=== PATIENT | female | born 1945 | race Caucasian/White ===

== ENCOUNTER → 2017-06-05 10:49 | Outpatient (CLI) | payer MEDICARE, SELFPAY ==
--- NOTE | 2017-06-05 10:54 | HPBI_ITS ---
MAMMOGRAPHY - BILATERAL SCREENING REASON FOR EXAM: Female, 71 years old. Routine annual screening examination. PERTINENT HISTORY: Non-contributory. TECHNIQUE: Digital bilateral breast justina (3D mammographic acquisition) in the CC and MLO projections. 2-D mediolateral oblique (MLO) and craniocaudad (CC) views of both breasts were obtained. CAD: Full Field Digital Mammography with Computer Added Detection was performed. COMPARISON: Comparison is made with prior outside examination dated February 26, 2016. FINDINGS: Breast Composition: There are scattered areas of fibroglandular density. There are no dominant masses or suspicious calcifications. There are stable bilateral benign-appearing axillary lymph nodes. No other significant abnormalities are identified. There has been no significant change since the prior study. HPBI/SCREENING MAMM (CAD), BILAT IMPRESSION: Stable bilateral screening mammogram. Yearly follow-up mammogram recommended. (A) ASSESSMENT CATEGORY: BIRADS Category 2: Benign. A letter regarding these results will be sent to the patient by the facility within 30 days. Approximately 10% of breast cancers are not detected by mammography. A normal mammogram should not delay biopsy of a clinically suspicious abnormality. [id number] Electronically Signed: Benny Mendieta MD at 13:01 EST Tel [phone], Service support ,
== END ==
PROVIDERS: Family Provider Nurse Practitioner; PCP Nurse Practitioner; Visit Provider Nurse Practitioner
DX: Z12.31 Encounter for screening mammogram for malignant neoplasm of breast (principal)
CPT/HCPCS: 77063; 77067

== ENCOUNTER → 2018-04-03 10:50 | Outpatient (CLI) | payer MEDICARE, SELFPAY ==
[2018-03-28 10:32] VITALS: BMI 39.6
--- NOTE | 2018-04-04 11:15 | PFT ---
INTRODUCTION: The patient is a 72-year-old female that presents for pulmonary function testing secondary to a diagnosis of shortness of breath. Respiratory therapy reports good patient effort. Bronchodilators were used during testing. INTERPRETATION: Forced expiration spirometry demonstrates the presence of a severe large airways obstructive ventilatory defect. There was a significant response to aerosolized bronchodilators noted. Spirograms are of good quality and do not plateau indicating slow emptying of the lungs. Body plethysmography was performed and reveals an elevated RV to 156% of predicted, indicative of underlying air trapping. Diffusing capacity by single breath CO is reduced at 43% of predicted. IMPRESSION: These pulmonary function studies demonstrate the presence of a partially reversible severe large airways obstructive ventilatory defect with associated air trapping and reduction in diffusing capacity.
== END ==
PROVIDERS: Family Provider Nurse Practitioner; PCP Nurse Practitioner; Referring Provider Internal Medicine Critical Care Medicine; Visit Provider Internal Medicine Critical Care Medicine
DX: R06.02 Shortness of breath (principal)
CPT/HCPCS: 94060; 94726; 94729

== ENCOUNTER → 2018-04-05 11:55 | Outpatient (CLI) | payer MEDICARE, SELFPAY ==
[2018-03-28 10:32] VITALS: BMI 39.6
--- NOTE | 2018-04-05 11:58 | RAD_ITS ---
STUDY: X-RAY - LUMBAR SPINE REASON FOR EXAM: Female, 72 years old. Lower back pain. TECHNIQUE: 3 view(s) of the lumbar spine were obtained. COMPARISON: June 13, 2014. MRI of the lumbar spine, July 23, 2014. FINDINGS: Normal lumbar lordosis. There is a dextroscoliosis of the thoracolumbar spine. There is a normal alignment of the vertebrae. There is multilevel endplate spondylosis of the lumbar vertebrae. There is multi-level degenerative disc disease with multi-level disc space narrowing. There is no evidence of acute fracture or loss of vertebral axial height. There is atherosclerotic calcification of the abdominal aorta a lower abdominal aneurysm measuring 4.9 cm in AP dimension. RAD/Lumbar Spine 2 or 3 Views IMPRESSION: 1. Scoliosis and degenerative changes of the lumbar spine. 2. Stable abdominal aortic aneurysm. Electronically Signed: Rk Miranda DO at 23:19 EST Tel [phone], Service support ,
== END ==
PROVIDERS: Family Provider Nurse Practitioner; PCP Nurse Practitioner; Referring Provider Anesthesiology Pain Medicine; Visit Provider Anesthesiology Pain Medicine
DX: M54.9 Dorsalgia, unspecified (principal)
CPT/HCPCS: 72100

== ENCOUNTER → 2018-04-16 10:44 | Outpatient (CLI) | payer MEDICARE, SELFPAY ==
[2018-03-28 10:32] VITALS: BMI 39.6
[2018-04-16 11:28] VITALS: PULSE 59; PULSE 60; PULSE 83; PULSE 87; PULSE 88; PULSE 89; PULSE 93; PULSE 96; O2SAT 87; O2SAT 90; O2SAT 93; O2SAT 94; O2SAT 95; O2SAT 96; O2SAT 97
--- NOTE | 2018-04-16 11:39 | CPS ---
Pt's SpO2 dropped to 87% by the 3rd minute. Placed patient on 2 lpm O2, SpO2 97%. Patient walked an additional 3 minutes on 2 lpm O2, SpO2 >89%. Explained to patient about having oxygen at home when ambulating, patient states she would like to wait and discuss with Lisa AUTO BENCH MECHANIC at her appointment this month. Told patient that Lisa would be willing to come down now to talk to her but patient refused.
--- NOTE | 2018-04-18 15:14 | WT_ITS ---
PSN 6 Minute Walk Test - 6 Minute Walk Test 6 Minute Walk Test: 6 Minute Walk Test PSN:6-Minute Walk Test Start: 04/16/18 11:28 Freq: Status: Active Protocol: [id number].6MINW Document 04/16/18 11:28 GEN (Rec: 04/16/18 11:50 GEN [id number]) 6 Minute Walk Test Date Performed 04/16/18 Time Performed 11:00 Height 5 ft 5 in Weight: 195 lb Weight in Pounds 195.[address]: Alessandro Zepeda Assistive device used: None Pre-test Oxygen Delivery Method Room Air Pulse Ox (%) 94 Pulse Rate (60-100 beats/min) 59 L Dyspnea Myrtle Scale (0-10) 0 Exertion Myrtle Scale (6-20) 6 1st minute Oxygen Delivery Method Room Air Pulse Ox (%) 93 Pulse Rate (60-100 beats/min) 83 2nd minute Oxygen Delivery Method Room Air Pulse Ox (%) 90 Pulse Rate (60-100 beats/min) 93 3rd minute Oxygen Delivery Method Room Air Pulse Ox (%) 87 Pulse Rate (60-100 beats/min) 96 Dyspnea Myrtle Scale (0-10) 3 4th minute Oxygen Flow Rate (L/min) (L/min) 2 Oxygen Delivery Method Nasal Cannula Pulse Ox (%) 96 Pulse Rate (60-100 beats/min) 87 5th minute Oxygen Flow Rate (L/min) (L/min) 2 Oxygen Delivery Method Nasal Cannula Pulse Ox (%) 95 Pulse Rate (60-100 beats/min) 88 6th minute Oxygen Flow Rate (L/min) (L/min) 2 Oxygen Delivery Method Nasal Cannula Pulse Ox (%) 93 Pulse Rate (60-100 beats/min) 89 Dyspnea Myrtle Scale (0-10) 2 Exertion Myrtle Scale (6-20) 12 Post-test Oxygen Flow Rate (L/min) (L/min) 2 Oxygen Delivery Method Nasal Cannula Pulse Ox (%) 97 Pulse Rate (60-100 beats/min) 60 Full Laps Walked 18 Partial Lap, Number of Tiles Walked 12 Total Distance Walked (ft) 1074 04/16/18 11:39 Cardiopulmonary Services by Noelle Caicedo Pt's SpO2 dropped to 87% by the 3rd minute. Placed patient on 2 lpm O2, SpO2 97%. Patient walked an additional 3 minutes on 2 lpm O2, SpO2 >89%. Explained to patient about having oxygen at home when ambulating, patient states she would like to wait and discuss with Lisa TRIP MOTOR OPERATOR at her appointment this month. Told patient that Lisa would be willing to come down now to talk to her but patient refused. Initialized on 04/16/18 11:39 - END OF NOTE - Interpretation Interpretation: The patient ambulated 1074 feet over the course of 6 minutes beginning on room air without assistive devices or breaks. Pretesting oxygen saturation was noted to be 94% on room air. With ambulation, the nyla oxygen saturation was 87% at minute 3 of testing. 2 L/min of supplemental oxygen was applied and the patient was able to complete the remainder of the test while maintaining appropriate oxygen saturations. This testing indicates the presence of significant exertional oxygen desaturation. - Recommendations Recommendations: 2 L/min of supplemental oxygen should be utilized with exertion.
--- OUTSIDE RECORDS SUMMARY | 2018-07-18 23:50 | XMS RPT_ITS ---
:1945 Author Organization OHIP Support Name Relationship Address Phone HENRI HENNA Unavailable [address] + [place] [address] R Unavailable Unavailable Unavailable Sheipline, Heather Unavailable . + [place] [address] SULEMA SINGLETONISE Unavailable [address] + [place] [address] R Unavailable Unavailable Unavailable Sheipline, Heather Unavailable . + [place] [address] SULEMA SINGLETONISE Unavailable [address] + [place] [address] R Unavailable Unavailable Unavailable Sheipline, Heather Unavailable Unavailable + [place] [address] HENRI, HENNA Unavailable [address] + [place] [address] R Unavailable Unavailable Unavailable SHEIPLINE, CINTHYA Unavailable [address] + [place] [address] HENRI, HENNA Unavailable [address] + [place] [address] R Unavailable Unavailable Unavailable Sheipline, Heather Unavailable . + [place] [address] HENRI, HENNA Unavailable [address] + [place] [address] R Unavailable Unavailable Unavailable SHEIPLINE, CINTHYA Unavailable [address] + [place] [address] HENRI, HENNA Unavailable [address] + [place] [address] R Unavailable Unavailable Unavailable SHEIPLINE, CINTHYA Unavailable [address] + [place] [address] Henri, Henna Unavailable Unavailable + MCCANNA, HENNA Unavailable [address] + [place] [address] R Unavailable Unavailable Unavailable CINTHYA BARRAGAN Unavailable [address] [phone] [place] [address] Care Team Providers Name Role Phone Darlyn Chawla Attending Unavailable Rowena Hernandez Referring Unavailable Mary Rowena Primary Care Unavailable Alessandro Zepeda D.O. Attending Unavailable Alessandro Zepeda D.O. Referring Unavailable Lisa Ashley Attending Unavailable Rina Valle Referring Unavailable Romy Blood.O. Attending Unavailable Romy Blood.O. Referring Unavailable Rina Valle Attending Unavailable Rina Valle Primary Care Unavailable Romy Blood.Costa. Attending Unavailable Rina Valle Referring Unavailable Alessandro Zepeda D.O. Attending Unavailable Romy Blood.O. Referring Unavailable Rina Valle Primary Care Unavailable Romy Blood.Costa. Attending Unavailable Romy Blood.Marlyn Referring Unavailable Rina Valle Primary Care Unavailable Migue Inman Attending Unavailable Migue Inman Referring Unavailable Shirleneapoorva [facility] Unavailable PROBLEMS PROBLEMS DATE TYPE CONDITION / CODE ATTENDING STATUS SOURCE 04/25/2018 Unknown J44.9 - Chronic Ashley, Active [facility] obstructive [facility] pulmonary disease, Hospital unspecified / Repository J44.9(ICD-10) 04/25/2018 Unknown J45.909 - Ashley, Active [facility] Unspecified asthma, [facility] uncomplicated / Hospital J45.909(ICD-10) Repository 04/25/2018 Unknown Z23 - Encounter for Ashley, Active [facility]ianna immunization / [facility] Z23(ICD-10) Hospital Repository 05/03/2018 Unknown R06.02 - Shortness Alessandro Zepeda Active [facility] of breath / [facility] R06.02(ICD-10) Hospital Repository 11/09/2017 Admitting Occlusion and Derek, [facility] Diagnosis stenosis of [facility] bilateral carotid Repository arteries / I65.23(ICD-10) 11/09/2017 Admitting Stricture of artery Derek, [facility] Diagnosis / I77.1(ICD-10) [facility] Repository 06/05/2017 Unknown Z12.31 - Encounter Rina Valle Active [facility] for screening Community mammogram for Hospital malignant neoplasm Repository of breast / Z12.31(ICD-10) PROCEDURES PROCEDURES No Procedure Records FoundRESULTS RESULTS PULMONARY VISIT REPORT Observed: 04/25/2018 Status: F Source: [place] 3:19 PM [facility] RE[facility]IT[facility] [address] [place] [address] OFFICE VISIT Date of Service: 04/25/18 MR#: [id number] Acct: [id number] Name: DIOGO BARRAGAN Rep #: [id number] : 1945 Provider: Lisa Ashley Age/Sex: 72/F Location: [facility].PMW Status: Signed with Addenda ADDENDUM by Lisa Ashley on 04/25/18 at 1519 OFFICE PROCEDURES Office Procedure Documentation entered by BOO Sullivan 04/25/18 15:19: Inhaler Training Inhaler Training Procedure performed by: Lisa Ashley Inhaler Training: Yes personally trained on inhaler use, sample provided, first dose given in the office, expresses understanding and continue to monitor Immunizations Prevnar 13 (PF) Performing Provider: BOO Sullivan Administered by: Sandra Dos Santos on 04/25/18 13:55 Dose Route Admin Location Lot Number Expiration Date [facility] Supply Coordinator 0.5 mL IM Left Deltoid [id number] 11/29/18 [id number] [employer] VIS Given Date VIS Publication Date 04/25/18 12/05/14 Eligibility Eligibility Date 04/25/18 3306 <Electronically signed by Lisa HADDAD> Date Lisa Ashley cc: Rina Valle NP * Signed Assessment AND Plan 1. Stage 3 severe COPD by GOLD classification J44.9 Plan New. Given results of recent PFTs we have been able to quantify patient's COPD as severe. Discussed the test results with the patient. Keeping her on the Symbicort, however given her air trapping will add Spiriva. She was personally instructed on how to use the new inhaler. Follow-up with Dr. Zepeda in 2 months, at which time we can evaluate how she has responded to this new medication. Contact the office with any new or worsening symptoms in the meantime. Annual influenza vaccine current, Prevnar 13 provided in the office today. Orders Orders: 2. Acute respiratory failure with hypoxia J96.01 Plan New. Patient was recently identified as becoming hypoxic with ambulation and needs to be set up with supple oxygen. She should use 2 L/min continuous with ambulation but does not require supplemental oxygen at rest. We will follow-up with Dr. Zepeda in 2 months, at which time we can reevaluate her need for supple oxygen. She has been encouraged to obtain a portable pulse oximeter to check her saturations at home and maintain a saturation of 89-92%. 3. Asthma J45.909 Orders Orders: 4. Obesity (BMI 30.0-34.9) E66.9 Plan Detail Other Orders Orders: Other Medications New: tiotropium bromide 2.5 mcg/actuation (Spiriva Respimat) 2 puffs Inhalation QDAY 1 ea 1RF administer at approximately the same time(s) each day Discontinued: Prevnar 13 (PF) (pneumoc 13-eliel conj-dip cr(PF)) Disco0.5 mL IM ONCE 0.5 mL 0RF NS Z23 ntinued Reason: Office Medication has been Documented as given Follow Up 2 Months (DMB) HPI 1 M FU: Chief Complaint: Shortness of breath on exertion HPI Comments Details: This is a 72 year old F, currently under the care of Rina Valle NP, here today to review test results. He has not been seen in the ED or urgent care for respiratory illnesses since her last office visit. Has not required any antibiotics or prednisone for any breathing problems. She is compliant with Symbicort 2 puffs twice daily. She reports taking a drink after each use. She denies any medication side effects such as sore throat or thrush. She has not admitted to any albuterol use. She states that she uses her rescue inhaler rarely. She continues to experience shortness of breath on exertion only, denies any shortness of breath with rest or with conversation. It has not worsened since her last office visit. She does report occasional chest tightness, relieved by the use of her albuterol HFA. She has clear nasal drainage but denies any cough. She denies any sputum production. She denies any wheezing or chest pain, or palpitations. She denies any fever, chills or body aches. See complete review of systems. I personally reviewed the tests/images/tracings which showed: Complete Pulmonary Function test were preformed on April 03, 2018, and showed FVC of 83 % of predicted, FEV1 of 58 % of predicted, FEV1/FVC ratio of 53 %, TLC of 110 % of predicted, RV of 156 % of predicted, DLCO 43% of predicted. The test was interpreted to be consistent with severe large airway obstructive ventilatory defect, with a significant response to bronchodilators and a reduction in diffusing capacity. Air trapping was noted. Consistent with asthma/COPD overlap syndrome. Pulmonary stress test was completed on April 16, 2018, and showed a drop in saturation below 89% at minute 3, which suggested a requirement of 2 LPM of supplemental oxygen on ambulation. She was able to ambulate a total of 1074 feet over the course of 6 minutes. 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 [Ecotrin] 81 mg PO DAILY@0800 03/23/16 [History Confirmed 04/25/18] Budesonide/Formoterol 160/4.5 [Symbicort 160/4.5 Mcg Inhaler (SP)] 2 puff INHALATION BID 03/23/16 [History Confirmed 04/25/18] Naproxen Sodium [Aleve] 880 mg PO 03/23/16 [History Confirmed 04/25/18] ascorbic acid (vitamin C) 1,000 mg tablet 1,000 mg PO QDAY tab 03/26/18 [History Confirmed 04/25/18] calcium carbonate 550 mg-magnesium hydroxide 110 mg chewable tablet 1 tab PO Q6H PRN tab 03/26/18 [History Confirmed 04/25/18] calcium carbonate 600 mg calcium (1,500 mg) tablet 1,200 mg PO BID tab 03/26/18 [History Confirmed 04/25/18] cholecalciferol (vitamin D3) 50,000 unit capsule 50,000 unit PO QWEEK 03/26/18 [History Confirmed 04/25/18] diphenhydramine 25 mg-acetaminophen 500 mg tablet 1 tab PO QHS PRN 03/26/18 [History Confirmed 04/25/18] glucosamine 750 oz-dkxyavigf-ftl no.7 644 mg-vit S-bktdup-llfoy tablet 1 tab PO QDAY tab 03/26/18 [History Confirmed 04/25/18] rosuvastatin 10 mg tablet 10 mg PO DAILY 03/26/18 [History Confirmed 04/25/18] tiotropium bromide 2.5 mcg/actuation mist for inhalation 2 puff INHALATION QDAY #1 ea 04/25/18 [Rx Confirmed 04/25/18] [facility] Medical History Abdominal aortic aneurysm (Acute) Shoulder pain (Acute) Tinnitus, right (Acute) Urinary frequency (Acute) Urinary incontinence (Acute) Abnormal ankle brachial index (MARIAMA) (Chronic) Anemia (Chronic) Arterial occlusive disease (Chronic) Bilateral carotid bruits (Chronic) COPD (chronic obstructive pulmonary disease) (Chronic) Carotid artery stenosis, unilateral (Chronic) LITTLEJOHN (dyspnea on exertion) (Chronic) Former smoker (Chronic) Hypercholesterolemia (Chronic) Osteopenia (Chronic) Sciatica (Chronic) Surgical History H/O dilation and curettage (Resolved) H/O foot surgery (Resolved) H/O hemorrhoidectomy (Resolved) H/O tubal ligation (Resolved) History of appendectomy (Resolved) Family History Mother Hypertension Social History Smoking Status: Former smoker how long ago did patient quit smokin, 1ppd second hand exposure: Yes Review of Systems Const CONSTITUTIONAL: Positive fatigue; negative anorexia, body ache, chills, daytime sleepiness, fever(s), night sweats, oral thrush, stops breathing during sleep, weight loss, sleeping in chair, weight loss, weight gain, frequent colds, seasonal allergies, other, headache(s) or orthopnea EETM Ear Nose Throat Mouth: Positive hearing normal, nasal discharge (clear) and post nasal drip; negative hard of hearing, hoarseness, dry mouth in morning, change in vision, itchy eyes, eye pain, swallowing Difficulty, ear pain, nose bleed, headache(s), mouth pain, nasal congestion, sinus pain, sinus pressure, sore throat or other Cardio Cardiovascular: Negative chest pain, chest pain at rest, chest pain with activity, irregular heart rhythm, edema, shortness of breath when lying down, palpitations, murmur or other Resp Respiratory: Positive as per HPI, shortness of breath shortness of breath: Positive with activity, chest tightness and inhalers; negative pain with cough, wheezing, chest congestion, cough, pain on inspiration, increase use of rescue inhalers, snoring, apnea or other Gastro Gastrointestional: Negative bloody stools, change in appetite, difficulty swallowing, reflux, hematemesis, melena stool, loose stool, constipation or other Genitourinary: Negative blood in urine, nocturia, pain with urination or other Musc Musculoskeletal: Negative body pain, back pain, neck pain or other Skin/Breast Skin/Breast: Negative dry skin, itching, rash, unusual bruising, breast lump or other Neuro Neurological: Negative restless legs, confusion, weakness or other Psych Psychocological: Negative abnormal sleep pattern, anxiety, thoughts of hurting self/others, hopelessness or other Lymph Lymphatic: Negative easy bleeding, easy bruising, swollen lymph nodes or other Exam Const Constitutional: Positive conversant, cooperative, in no acute respiratory distress, healthy appearing, well developed, well nourished and good hygiene Head Head: Positive normocephalic and atraumatic; negative cyanosis of lips/distal nose Eyes Eye: Positive clear conjunctiva; negative nystagmus or scleral abnormality Ears Ear: Positive hearing normal and external ears normal; negative hard of hearing Nose Nose: Positive external nose normal and no nasal discharge; negative epistaxis Mouth Mouth: Positive post nasal drip, oral mucosae normal, no lesions, dentures and crowded posterior oropharynx; negative malodorous breath or oral thrush present Mallampati Score: III: Mallampati Score Neck Neck: Positive normal visual inspection, full ROM, trachea midline and thick neck; negative lymphadenopathy, JVD or tender Chest Wall Chest: Positive symmetric chest movement and increased A/P diameter Resp lung sounds: Positive clear to auscultation, diminished and prolonged expiratory time; negative wheezes, rhonchi, rales, dullness to percussion or wheeze present on forced exhalation Cardio Cardiac: Positive regular rate, regular rhythm, S1 normal and S2 normal; negative murmur GI GI: Positive normal to inspection; negative distended Genitourinary: Positive deferred Musc Musculoskeletal: Positive steady gait, ROM normal and kyphosis; negative scoliosis Skin Pulmonary Skin Exam: Positive intact; negative rash Pulses Pulse: Yes pulses normal x4 extremities Extremities Extremities: Yes capillary refill normal, No clubbing, No cyanosis, No edema Neuro Neurologic: Yes conversant, Yes no focal neuro deficits, Yes normal concentration, Yes understands questions, Yes cooperative, Yes normal cognition, Yes normal coordination, No tremor Lymph Lymphatic: No lymphadenopathy, No tenderness, No cervical adenopathy Psych Appearance: Positive grossly normal, eye contact and well kempt Mental Status: Positive mental status grossly normal Mood: Positive congruent mood Affect: Positive normal affect Immunizations Prevnar 13 (PF) Performing Provider: BOO Sullivan Administered by: Sandra Dos Santos on 04/25/18 13:55 Dose Route Admin Location Lot Number Expiration Date [employer] Supply Coordinator 0.5 mL IM Left Deltoid [id number] 11/29/18 [employer] VIS Given Date VIS Publication Date 04/25/18 12/05/14 Eligibility Eligibility Date Coding Level of Care Code Off vis,est,level 4 Diagnoses Stage 3 severe COPD by GOLD classification J44.9 Acute respiratory failure with hypoxia J96.01 Chronicity: acute Asthma J45.909 Obesity (BMI 30.0-34.9) E66.9 04/25/18 1509 <Electronically signed by Lisa HADDAD> Date Lisa HADDAD Cosigner Signature: Date (if applicable) CC: Rina Valle CLIENT PROGRAM MANAGER 6 MINUTE WALK TEST Observed: 04/18/2018 Status: F Source: [place] 3:14 PM [facility] [address] [place] [address] MR#: [id number] Acct: [id number] Name: DIOGO BARRAGAN Rep #: [id number] : 1945 72 From: Alessandro Zepeda DO Referring Dr: Alessandro Zepeda D.O. Date: Ordering Dr: Sex: F C Location: PSN PSN 6 Minute Walk Test - 6 Minute Walk Test 6 Minute Walk Test: 6 Minute Walk Test PSN:6-Minute Walk Test Start: 04/16/18 11:28 Freq: Status: Active Protocol: RESP.6MINW Document 04/16/18 11:28 [place] (Rec: 04/16/18 11:50 SF[place] [id number]) 6 Minute Walk Test Date Performed 04/16/18 Time Performed 11:00 Height 5 ft 5 in Weight: 195 lb Weight in Pounds 195.[address]: Alessandro Zepeda Assistive device used: None Pre-test Oxygen Delivery Method Room Air Pulse Ox (%) 94 Pulse Rate (60-100 beats/min) 59 L Dyspnea Myrtle Scale (0-10) 0 Exertion Myrtle Scale (6-20) 6 1st minute Oxygen Delivery Method Room Air Pulse Ox (%) 93 Pulse Rate (60-100 beats/min) 83 2nd minute Oxygen Delivery Method Room Air Pulse Ox (%) 90 Pulse Rate (60-100 beats/min) 93 3rd minute Oxygen Delivery Method Room Air Pulse Ox (%) 87 Pulse Rate (60-100 beats/min) 96 Dyspnea Myrtle Scale (0-10) 3 4th minute Oxygen Flow Rate (L/min) (L/min) 2 Oxygen Delivery Method Nasal Cannula Pulse Ox (%) 96 Pulse Rate (60-100 beats/min) 87 5th minute Oxygen Flow Rate (L/min) (L/min) 2 Oxygen Delivery Method Nasal Cannula Pulse Ox (%) 95 Pulse Rate (60-100 beats/min) 88 6th minute Oxygen Flow Rate (L/min) (L/min) 2 Oxygen Delivery Method Nasal Cannula Pulse Ox (%) 93 Pulse Rate (60-100 beats/min) 89 Dyspnea Myrtle Scale (0-10) 2 Exertion Myrtle Scale (6-20) 12 Post-test Oxygen Flow Rate (L/min) (L/min) 2 Oxygen Delivery Method Nasal Cannula Pulse Ox (%) 97 Pulse Rate (60-100 beats/min) 60 Full Laps Walked 18 Partial Lap, Number of Tiles Walked 12 Total Distance Walked (ft) 1074 04/16/18 11:39 Cardiopulmonary Services by Noelle Caicedo Pt's SpO2 dropped to 87% by the 3rd minute. Placed patient on 2 lpm O2, SpO2 97%. Patient walked an additional 3 minutes on 2 lpm O2, SpO2 >89%. Explained to patient about having oxygen at home when ambulating, patient states she would like to wait and discuss with Lisa CLIENT PROGRAM MANAGER at her appointment this month. Told patient that Lisa would be willing to come down now to talk to her but patient refused. Initialized on 04/16/18 11:39 - END OF NOTE - Interpretation Interpretation: The patient ambulated 1074 feet over the course of 6 minutes beginning on room air without assistive devices or breaks. Pretesting oxygen saturation was noted to be 94% on room air. With ambulation, the nyla oxygen saturation was 87% at minute 3 of testing. 2 L/min of supplemental oxygen was applied and the patient was able to complete the remainder of the test while maintaining appropriate oxygen saturations. This testing indicates the presence of significant exertional oxygen desaturation. - Recommendations Recommendations: 2 L/min of supplemental oxygen should be utilized with exertion. 04/18/181513 <Electronically signed by Alessandro Zepeda DO> Date Alessandro Zepeda DO CC: Date Dictated: 04/18/181511 Date Transcribed: 04/18/181511 Offset Printing Pressmen: Alessandro Zepeda DO Signed LUMBAR SPINE 2 OR 3 Observed: 04/05/2018 Status: F Source: [place] [facility] 11:58 AM [facility] Services [address] [place] [address] Lumbar Spine 2 or 3 Views MR#: [id number] Acct: [id number] Name: DIOGO BARRAGAN Rep #: [id number] : 1945 F 72 From: Rk Miranda DO PCP: Rina Valle NP Status: REG CLI Study: Lumbar Spine 2 or 3 Views Date of Exam: 04/05/18 Exam# [id number] Ordering Dr: Migue Inman MD STUDY: X-RAY - LUMBAR SPINE REASON FOR EXAM: Female, 72 years old. Lower back pain. TECHNIQUE: 3 view(s) of the lumbar spine were obtained. COMPARISON: June 13, 2014. MRI of the lumbar spine, July 23, 2014. FINDINGS: Normal lumbar lordosis. There is a dextroscoliosis of the thoracolumbar spine. There is a normal alignment of the vertebrae. There is multilevel endplate spondylosis of the lumbar vertebrae. There is multi-level degenerative disc disease with multi-level disc space narrowing. There is no evidence of acute fracture or loss of vertebral axial height. There is atherosclerotic calcification of the abdominal aorta a lower abdominal aneurysm measuring 4.9 cm in AP dimension. RAD/Lumbar Spine 2 or 3 Views IMPRESSION: 1. Scoliosis and degenerative changes of the lumbar spine. 2. Stable abdominal aortic aneurysm. Electronically Signed: Rk Miranda DO at 23:19 EST Tel [phone], Service support , CC: Rina Valle NP; Migue Inman MD [employer] Pressmen: Signed PULMONARY FUNCTION Observed: 04/04/2018 Status: F Source: [place] TEST 11:17 AM [facility] Services/Neurology [address] [place] [address] MR#: [id number] Acct: [id number] Name: DIOGO BARRAGAN Rep #: [id number] : 1945 72 From: Alessandro Zepeda DO Referring Dr: Alessandro Brown, D.O. Status: REG CLI Ordering Dr: Date: Location: [facility] Sex: F C INTRODUCTION: The patient is a 72-year-old female that presents for pulmonary function testing secondary to a diagnosis of shortness of breath. Respiratory therapy reports good patient effort. Bronchodilators were used during testing. INTERPRETATION: Forced expiration spirometry demonstrates the presence of a severe large airways obstructive ventilatory defect. There was a significant response to aerosolized bronchodilators noted. Spirograms are of good quality and do not plateau indicating slow emptying of the lungs. Body plethysmography was performed and reveals an elevated RV to 156% of predicted, indicative of underlying air trapping. Diffusing capacity by single breath CO is reduced at 43% of predicted. IMPRESSION: These pulmonary function studies demonstrate the presence of a partially reversible severe large airways obstructive ventilatory defect with associated air trapping and reduction in diffusing capacity. 04/04/181116 <Electronically signed by Alessandro Zepeda DO> Date Alessandro Zepeda DO CC: Rina Valle CLIENT PROGRAM MANAGER; Alessandro Zepeda D.O. Date Dictated: 04/04/181114 Date Transcribed: 04/04/181114 Offset Printing Pressmen: KELSI Signed PULMONARY VISIT REPORT Observed: 03/28/2018 Status: F Source: [place] 12:12 PM [facility] Pul[facility] Medicine [address] [place] [address] OFFICE VISIT Date of Service: 03/28/18 MR#: [id number] Acct: [id number] Name: DIOGO BARRAGAN Rep #: [id number] : 1945 Provider: Alessandro Zepeda D.O. Age/Sex: 72/F Location: [facility].PMW Status: Signed Assessment AND Plan 1. Shortness of breath R06.02 Plan While the patient presents with an established diagnosis of COPD, based upon in office spirometry testing completed in 2013, the validity of those tests are questionable at best. In addition, the patient does not appreciate any significant symptom improvement on Symbicort. Therefore, I would recommend that the patient proceed with obtaining dedicated PFTs along with a 6-minute walk test to assess for any exertional hypoxia. Given the patient's significant weight gain following cessation of tobacco utilization, my clinical suspicion is for underlying obesity and deconditioning contributing to her dyspnea. The patient will have short interval follow-up with our nurse practitioner to review the results of her testing. Orders Orders: Plan Detail Follow Up 1 Month (CSM) HPI HPI Comments Details: The patient is a 72-year-old female that presents to the clinic today in referral for evaluation of shortness of breath and abnormal PFTs. The patient is currently being followed by comprehensive internal medicine. 6 pages of outside medical records were personally reviewed. The patient believes that she was initially diagnosed with COPD based upon office spirometry completed in 2013. Office spirometry was completed in 2013 with an auto interpretation of moderately severe obstruction. However, there appeared to be patient related effort issues based upon the patient's spirograms and flow volume loop. The patient has been on Symbicort and as needed albuterol since that time. She does not report a significant symptom improvement/relief with the use of Symbicort and/or her rescue inhaler. Her main complaint is for that of gradually worsening exertional shortness of breath. The patient has a smoking history that includes 1 pack/day x 50 years, having quit completely 3 years ago. She does report that since quitting smoking, she has gained approximately 40 pounds. She denies any significant chest tightness, wheezing or cough. She does report that approximately 10 years ago, following knee surgery, she was diagnosed with a pulmonary embolism. She has already completed pulmonary rehabilitation to date. She denies any underlying cardiac issues. She has lived in [place] her entire life. 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 She denies any fevers, chills or night sweats. Intake Vital Signs03/28/18 Height 5 ft 03/28/18 Weight: 203 lb Intake Visit Reasons: Shortness of breath Accompanied by: Self Allergies No Known Allergies Allergy (Unverified 03/28/18 10:33) Medications Albuterol Inhaler [Ventolin Hfa (SP)] 2 puff INHALATION Q4H PRN PRN 03/23/16 [History Confirmed 03/28/18] Aspirin E.C. [Ecotrin] 81 mg PO DAILY@0800 03/23/16 [History Confirmed 03/28/18] Budesonide/Formoterol 160/4.5 [Symbicort 160/4.5 Mcg Inhaler (SP)] 2 puff INHALATION BID 03/23/16 [History Confirmed 03/28/18] Naproxen Sodium [Aleve] 880 mg PO 03/23/16 [History Confirmed 03/28/18] ascorbic acid (vitamin C) 1,000 mg tablet 1,000 mg PO QDAY tab 03/26/18 [History Confirmed 03/28/18] calcium carbonate 550 mg-magnesium hydroxide 110 mg chewable tablet 1 tab PO Q6H PRN tab 03/26/18 [History Confirmed 03/28/18] calcium carbonate 600 mg calcium (1,500 mg) tablet 1,200 mg PO BID tab 03/26/18 [History Confirmed 03/28/18] cholecalciferol (vitamin D3) 50,000 unit capsule 50,000 unit PO QWEEK 03/26/18 [History Confirmed 03/28/18] diphenhydramine 25 mg-acetaminophen 500 mg tablet 1 tab PO QHS PRN 03/26/18 [History Confirmed 03/28/18] glucosamine 750 gs-sqexcdese-iow no.7 644 mg-vit Q-fldszw-mcfaw tablet 1 tab PO QDAY tab 03/26/18 [History Confirmed 03/28/18] rosuvastatin 10 mg tablet 10 mg PO DAILY 03/26/18 [History Confirmed 03/28/18] FOR[facility] Medical History Abdominal aortic aneurysm (Acute) Shoulder pain (Acute) Tinnitus, right (Acute) Urinary frequency (Acute) Urinary incontinence (Acute) Abnormal ankle brachial index (MAIRAMA) (Chronic) Anemia (Chronic) Arterial occlusive disease (Chronic) Bilateral carotid bruits (Chronic) COPD (chronic obstructive pulmonary disease) (Chronic) Carotid artery stenosis, unilateral (Chronic) LITTLEJOHN (dyspnea on exertion) (Chronic) Former smoker (Chronic) Hypercholesterolemia (Chronic) Osteopenia (Chronic) Sciatica (Chronic) Surgical History H/O dilation and curettage (Resolved) H/O foot surgery (Resolved) H/O hemorrhoidectomy (Resolved) H/O tubal ligation (Resolved) History of appendectomy (Resolved) Family History Mother Hypertension Social History Smoking Status: Former smoker how long ago did patient quit smokin, 1ppd second hand exposure: Yes Review of Systems Const CONSTITUTIONAL: Positive headache(s); negative anorexia, body ache, chills, daytime sleepiness, fever(s), night sweats, oral thrush, stops breathing during sleep, weight loss, sleeping in chair, fatigue, weight loss, weight gain, frequent colds, seasonal allergies, other or orthopnea EETM Ear Nose Throat Mouth: Positive hearing normal and headache(s); negative hard of hearing, hoarseness, dry mouth in morning, change in vision, itchy eyes, eye pain, swallowing Difficulty, ear pain, nose bleed, mouth pain, nasal congestion, nasal discharge, post nasal drip, sinus pain, sinus pressure, sore throat or other Cardio Cardiovascular: Negative chest pain, chest pain at rest, chest pain with activity, irregular heart rhythm, edema, shortness of breath when lying down, palpitations, murmur or other Resp Respiratory: Positive as per HPI and shortness of breath shortness of breath: Positive with activity; negative pain with cough, wheezing, chest congestion, cough, chest tightness, pain on inspiration, inhalers, increase use of rescue inhalers, snoring, apnea or other Gastro Gastrointestional: Negative bloody stools, change in appetite, difficulty swallowing, reflux, hematemesis, melena stool, loose stool, constipation or other Genitourinary: Positive nocturia (at least 4X/night); negative blood in urine, pain with urination or other Musc Musculoskeletal: Negative body pain, back pain, neck pain or other Skin/Breast Skin/Breast: Negative dry skin, itching, rash, unusual bruising, breast lump or other Neuro Neurological: Negative restless legs, confusion, weakness or other Psych Psychocological: Negative abnormal sleep pattern, anxiety, thoughts of hurting self/others, hopelessness or other Lymph Lymphatic: Negative easy bleeding, easy bruising, swollen lymph nodes or other Exam Const Constitutional: Positive conversant, cooperative, in no acute respiratory distress, well developed, well nourished, good hygiene and obese Head Head: Positive normocephalic and atraumatic; negative cyanosis of lips/distal nose Eyes Eye: Positive clear conjunctiva; negative nystagmus or scleral abnormality Ears Ear: Positive hearing normal and external ears normal; negative hard of hearing Nose Nose: Positive external nose normal; negative epistaxis Mouth Mouth: Positive oral mucosae normal and posterior oropharynx is adequate; negative no lesions or post nasal drip Mallampati Score: II: Mallampati Score Neck Neck: Positive normal visual inspection and trachea midline; negative lymphadenopathy Chest Wall Chest: Positive symmetric chest movement Normal AP diameter. Resp lung sounds: Positive clear to auscultation, good air exchange and normal expiratory time; negative wheezes, rhonchi or rales Cardio Cardiac: Positive regular rate, regular rhythm, S1 normal and S2 normal; negative rub, gallop or murmur GI GI: Positive normal bowel sounds and obese Soft without distention Genitourinary: Positive deferred Musc Musculoskeletal: Positive steady gait Skin Pulmonary Skin Exam: Positive intact; negative lesion, ulcers, dermal atrophy or rash Pulses Pulse: Yes Pedal pulses present: Extremities Extremities: No clubbing, No cyanosis, No edema Neuro Neurologic: Yes conversant, Yes no focal neuro deficits, Yes cooperative Lymph Lymphatic: No lymphadenopathy Psych Appearance: Positive grossly normal Mental Status: Positive mental status grossly normal Mood: Positive congruent mood Affect: Positive normal affect Coding Level of Care Code Off vis,new,level 4 Diagnoses Shortness of breath R06.02 03/28/18 1212 <Electronically signed by Alessandro Zepeda DO> Date Alessandro Zepeda DO Cosigner Signature: Date (if applicable) CC: Rina Valle CLIENT PROGRAM MANAGER VL PVR ARTERIAL Observed: 11/09/2017 Status: F Source: [facility] W/ 1:22 PM SYSTEM REPOSITORY EXERCIS Patient Name: DIOGO BARRAGAN Ultrasound Exam Date/Time 11/09/2017 14:02:08 EDT Exam VL PVR Arterial Doppler Lwr w/ Exercise Ordering Physician DARLYN CHAWLA Accession Number [id number] CPT4 Codes 85161 () Reason For Exam Atherosclerosis of [place] arteries of extremities with intermittent claudication, bilateral legs Report [facility] --- Multilevel Lower Extremity Arterial Evaluation with Exercise Patient Name: Diogo Barragan : 1945 Study Date: 11/09/2017 A (72yrs) Age: 72 Account: [id number] Gender: F Loc: BP: Ordering: Darlyn Chawla MD Technologist: Ordering Physician: Darlyn Chawla MD Central Office Inspector: Meghan Webber RVT Interpreting Physician: Truong Maguire --- Location: [address] --- INDICATIONS: Claudication. --- CONCLUSIONS 1. Right lower extremity with no arterial insufficiency at rest and normal exercise response 2. Left lower extremity with mild arterial insufficiency at rest and normal exercise response --- IMPRESSIONS: - MARIAMA and PVR waveforms of the right leg normal at rest. TBI diminished, small vessel disease vs spasm - The right lower extremity shows a normal response to exercise. - Left MARIAMA demonstrates mild arterial insufficiency at rest. PVR waveforms and segmental pressures reveal proximal SFA/popliteal disease - The left lower extremity shows a normal response to exercise. --- HISTORY: Risk factors: Former tobacco use. Dyslipidemia. --- STUDY DATA: Lower extremity multilevel physiologic evaluation with exercise. Birthdate: Patient birthdate: 1945. Age: Patient is 72 yr old. Sex: Gender: female. Ethnicity: Ethnicity: white. Pressure measurement and pulse volume recording. Patient status: Outpatient. Procedure: A vascular evaluation was performed. The images were obtained using a [employer] E9 vascular ultrasound machine. The patient exercised . The patient complained of moderate pain. Reason for stopping: fatigue. An exercise arterial exam was performed with exercise on a treadmill. Pre and post exercise measurements were recorded. --- PVR / Doppler waveforms: + +---------+-----+ !Segment !Pressure !Index! + +---------+-----+ !R brachial !177 mm Hg!-----! + +---------+-----+ !R thigh - low !192 mm Hg!1.08 ! + +---------+-----+ !R calf !188 mm Hg!1.06 ! + +---------+-----+ !R DP !175 mm Hg!0.98 ! + +---------+-----+ !R PT !179 mm Hg!1.01 ! + +---------+-----+ !R great toe !99 mm Hg !0.56 ! + +---------+-----+ !L brachial !178 mm Hg!-----! + +---------+-----+ !L thigh - high!193 mm Hg!1.08 ! + +---------+-----+ !L thigh - low !166 mm Hg!0.93 ! + +---------+-----+ !L calf !169 mm Hg!0.95 ! + +---------+-----+ !L DP !158 mm Hg!0.89 ! + +---------+-----+ !L PT !160 mm Hg!0.90 ! + +---------+-----+ !L great toe !111 mm Hg!0.62 ! + +---------+-----+ MARIAMA table: + +---------+ + + + !Stage !R PT !R PT index!L PT !L PT index! + +---------+ + + + !Baseline !179 mm Hg!1.01 !160 mm Hg !0.9 ! + +---------+ + + + !1 min post-exercise!215 mm Hg!1.05 !1.66 mm Hg!0.81 ! + +---------+ + + + Electronically signed by: Truong Maguire [id number]:04:25 Final Dictated: 11/09/2017 7:04 pm Dictating Physician: TRUONG MAGUIRE Signed Date and Time: 11/09/2017 7:04 pm Signed by: TRUONG MAGUIRE VL AORTA ILIAC Observed: 11/09/2017 Status: F Source: [facility] Reflux Medical DUPLEX 1:07 PM SYSTEM REPOSITORY Patient Name: DIOGO BARRAGAN Ultrasound Exam Date/Time 11/09/2017 14:02:32 EDT Exam VL Aorta Iliac Duplex Ordering Physician DARLYN CHAWLA Accession Number [id number] CPT4 Codes 38804 () Reason For Exam Abdominal aortic aneurysm, without rupture Report [facility] --- Abdominal Aortic Duplex Report Patient Name: Diogo Barragan : 1945 Study Date: 11/09/2017 A (72yrs) Age: 72 Account: [id number] Gender: F Loc: BP: Ordering: Darlyn Chawla MD Technologist: Ordering Physician: Darlyn Chawla MD Central Office Inspector: Meghan Webber RVT Interpreting Physician: Truong Maguire --- Location: [address] --- INDICATIONS: Aortic aneurysm. known 3.8 cm AAA. --- CONCLUSIONS 1. Positive for aortic aneurysm --- IMPRESSIONS: - Aorta patent, 3.73 cm aneurysm present - Bilateral iliac arteries patent, normal caliber --- HISTORY: Risk factors: Former tobacco use. Dyslipidemia. --- STUDY DATA: Abdominal aorta duplex. Birthdate: Patient birthdate: 1945. Age: Patient is 72 yr old. Sex: Gender: female. Ethnicity: Ethnicity: white. Height: Height: 0 cm. Weight: Weight: 0 kg. Doppler flow study including spectral analysis, color and huerta scale imaging. Patient status: Outpatient. Procedure: A vascular evaluation was performed. The images were obtained using a [employer] E9 vascular ultrasound machine. --- Arterial flow: + + + +-------+ + --+ !Location !V sys !V ed !AP cm !Transverse!Comment ! + + + +-------+ + --+ !Right common iliac -!80.6 cm/s !9.3 cm/s !0.76 cm!0.91 cm ! --! !distal ! ! ! ! ! ! + + + +-------+ + --+ !Left common iliac - !-249.6 cm/s!-10.2 cm/s!0.9 cm !1.22 cm !gas artifact.! !distal ! ! ! ! ! ! + + + +-------+ + --+ !Abd aorta - prox !61 cm/s ! !1.69 cm!1.74 cm ! --! + + + +-------+ + --+ !Abd aorta - mid !62.5 cm/s ! !3.73 cm!3.5 cm ! --! + + + +-------+ + --+ !Abd aorta - distal !54 cm/s ! !2.19 cm!2.51 cm ! --! + + + +-------+ + --+ !Right external iliac!154.5 cm/s ! !-------! ! --! + + + +-------+ + --+ !Left external iliac !105.7 cm/s ! !-------! ! --! + + + +-------+ + --+ Electronically signed by: Truong Maguire [id number] Final Dictated: 11/09/2017 4:23 pm Dictating Physician: TRUONG MAGUIRE Signed Date and Time: 11/09/2017 4:23 pm Signed by: TRUONG MAGUIRE VL CAROTID DUPLEX Observed: 11/09/2017 Status: F Source: [facility] ULTRASOUND COMPLETE 12:56 PM SYSTEM REPOSITORY Patient Name: DIOGO BARRAGAN Ultrasound Exam Date/Time 11/09/2017 14:02:21 EDT Exam VL Carotid Duplex Ultrasound Complete Ordering Physician DARLYN CHAWLA Accession Number [id number] CPT4 Codes 04965 () Reason For Exam Occlusion and stenosis of bilateral carotid arteries Report [facility] --- Carotid Duplex Report Patient Name: Diogo Barragan : 1945 Study Date: 11/09/2017 Jones (72yrs) Age: 72 Account: [id number] Gender: F Loc: BP: Ordering: Darlyn Chawla MD Technologist: Ordering Physician: Darlyn Chawla MD Central Office Inspector: NAILA JuddT Interpreting Physician: Truong Maguire --- Location: [address] --- INDICATIONS: Carotid stenosis. Left carotid endarterectomy --- CONCLUSIONS 1. Bilateral internal carotid arteries with no hemodynamically significant stenosis --- IMPRESSIONS: - Less than 50% stenosis by velocity criteria involving the right internal carotid artery with calcification noted. - Less than 50% stenosis by velocity criteria involving the left internal carotid artery. - The right vertebral artery is patent with normal antegrade flow. - The left vertebral artery is patent with normal antegrade flow. --- HISTORY: Risk factors: Former smoker - years since quittin.5 yr. Hyperlipidemia. --- STUDY DATA: Complete carotid duplex study. Birthdate: Patient birthdate: 1945. Age: Patient is 72 yr old. Sex: Gender: female. Ethnicity: Ethnicity: white. Doppler flow study including spectral analysis, color and huerta scale imaging. Patient status: Outpatient. Procedure: A vascular evaluation was performed. The images were obtained using a [employer] E9 vascular ultrasound machine. --- Arterial flow: + + + +--------+ +-------- --+ !Location !V sys !V ed !Stenosis!Plaque !Comment ! + + + +--------+ +-------- --+ !Right ICA - !81.7 cm/s !11.2 cm/s !< 50% !Heterogenous and !-------- --! !proximal ! ! ! !calcified ! ! + + + +--------+ +-------- --+ !Right ICA - mid!72.5 cm/s !12.5 cm/s !--------! !-------- --! + + + +--------+ +-------- --+ !Right ICA - !54.3 cm/s !8.6 cm/s !--------! !-------- --! !distal ! ! ! ! ! ! + + + +--------+ +-------- --+ !Right CCA - !71.2 cm/s !8.6 cm/s !--------! !-------- --! !proximal ! ! ! ! ! ! + + + +--------+ +-------- --+ !Right CCA - mid!68.6 cm/s !13.8 cm/s !--------! !-------- --! + + + +--------+ +-------- --+ !Right ECA !53 cm/s !11.2 cm/s !--------! !-------- --! + + + +--------+ +-------- --+ !Right vertebral!-33.4 cm/s!-6.3 cm/s !--------! !antegrade.! + + + +--------+ +-------- --+ !Left ICA - !68.8 cm/s !12.3 cm/s !< 50% ! !-------- --! !proximal ! ! ! ! ! ! + + + +--------+ +-------- --+ !Left ICA - mid !67.6 cm/s !15.7 cm/s !--------! !-------- --! + + + +--------+ +-------- --+ !Left ICA - !68.4 cm/s !18 cm/s !--------! !-------- --! !distal ! ! ! ! ! ! + + + +--------+ +-------- --+ !Left CCA - !77.6 cm/s !15 cm/s !--------! !-------- --! !proximal ! ! ! ! ! ! + + + +--------+ +-------- --+ !Left CCA - mid !91.4 cm/s !25.2 cm/s !--------! !-------- --! + + + +--------+ +-------- --+ !Left ECA !78 cm/s !0 cm/s !--------! !-------- --! + + + +--------+ +-------- --+ !Left vertebral !-54.3 cm/s!-12.3 cm/s!--------! !antegrade.! + + + +--------+ +-------- --+ Velocity ratios: + + + + + + ! !Right, V sys!Right, V ed!Left, V sys!Left, V ed! + + + + + + !Max ICA/Mid CCA!1.19 !0.91 !0.75 !0.71 ! + + + + + + Electronically signed by: Truong Maguire [id number]:23 Final Dictated: 11/09/2017 4:24 pm Dictating Physician: TRUONG MAGUIRE Signed Date and Time: 11/09/2017 4:24 pm Signed by: RTUONG MAGUIRE SCREENING MAMM (CAD), Observed: 06/05/2017 Status: F Source: [facility] BILAT 10:54 AM [facility] [address] [place] [id number] SCREENING MAMM (CAD), BILAT MR#: [id number] Acct: [id number] Name: DIOGO BARRAGAN Rep #: [id number] : 1945 F 71 From: Benny Mendieta MD PCP: Rina Valle NP Status: REG CLI Study: SCREENING MAMM (CAD), BILAT Date of Exam: 06/05/17 Exam# [id number] Ordering Dr: Rina Valle MAMMOGRAPHY - BILATERAL SCREENING REASON FOR EXAM: Female, 71 years old. Routine annual screening examination. PERTINENT HISTORY: Non-contributory. TECHNIQUE: Digital bilateral breast justina (3D mammographic acquisition) in the CC and MLO projections. 2-D mediolateral oblique (MLO) and craniocaudad (CC) views of both breasts were obtained. CAD: Full Field Digital Mammography with Computer Added Detection was performed. COMPARISON: Comparison is made with prior outside examination dated February 26, 2016. FINDINGS: Breast Composition: There are scattered areas of fibroglandular density. There are no dominant masses or suspicious calcifications. There are stable bilateral benign-appearing axillary lymph nodes. No other significant abnormalities are identified. There has been no significant change since the prior study. HPBI/SCREENING MAMM (CAD), BILAT IMPRESSION: Stable bilateral screening mammogram. Yearly follow-up mammogram recommended. (A) ASSESSMENT CATEGORY: BIRADS Category 2: Benign. A letter regarding these results will be sent to the patient by the facility within 30 days. Approximately 10% of breast cancers are not detected by mammography. A normal mammogram should not delay biopsy of a clinically suspicious abnormality. [id number] Electronically Signed: Benny Mendieta MD at 13:01 EST Tel [phone], Service support , CC: Rina Valle NP Offset Printing Pressmen: Signed ALLERGIES ALLERGIES DATE TYPE / CODE NAME / CODE REACTION SEVERITY SOURCE 04/25/2018 Drug No Known Unknown [facility] Allergy/4160 Allergies/F00 Hospital 52863(SNOMED [id number](RXNOR Repository CT) M) ENCOUNTERS ENCOUNTERS ADMIT/DISCHARGE ACCOUNT NUMBER ADMITTING ENCOUNTER LOCATION SOURCE CLASS 04/25/2018/04/25/20 [id number] Ambulatory BMSBuilding: [place] 18 BMS.[facility] Repository 04/18/2018 [id number] Ambulatory BMSBuilding: [facility] Repository 04/16/2018 [id number] Ambulatory [facility] ding:PSN Repository 04/05/2018 [id number] Ambulatory [facility] ding:RAD Repository 04/04/2018 [id number] Ambulatory BMSBuilding: [facility] Repository 04/03/2018 [id number] Ambulatory [facility] ding:PSN Repository 03/28/2018/03/28/20 [id number] Ambulatory BMSBuilding: [place] [facility] Repository 11/09/2017 [id number] Ambulatory [facility] Repository 06/05/2017 [id number] Ambulatory [place] [facility] [facility] ding:BI Repository PAYERS PAYERS ENCOUNTER GUARANTOR PAYER SUBSCRIBER SOURCE 04/25/2018 DIOGO A Primary DIOGO A [place] [id number] Insurance:[facility] CARE SHEIPLINEDOB: Community [place] MEDICAREPolicy [id number] Number: Repository [address]Mbz: 330 [id number] [phone] () Date:0120-97-14VQ [address] [place] [address] 13248JJ: 04/25/2018 Secondary NOT GIVENUNK [place] Insurance:SELF PAY [facility] Number: Effective Repository Date:2018-04-23 04/18/2018 DIOGO A Primary DIOGO A [place] [id number] Insurance:[facility] CARE SHEIPLINEDOB: Community [place] MEDICAREPolicy [id number] Number: Repository [id number]: 330 [id number] [phone] () Date:5022-26-40NN [address] [place] [address] 68602KT: 04/18/2018 Secondary NOT GIVENUNK [place] Insurance:SELF PAY [facility] Number: Effective Repository Date:2018-04-18 04/16/2018 DIOGO A Primary DIOGO A [place] [id number] Insurance:[facility] CARE SHEIPLINEDOB: Community [place] MEDICAREPolicy [id number] Number: Repository [id number]: 330 [id number] [phone] () Date:2960-19-18CI [address] [place] [address] 01409RZ: 04/16/2018 Secondary NOT GIVENUNK [place] Insurance:SELF PAY [facility] Number: Effective Repository Date:2018-03-28 04/05/2018 DIOGO A Primary DIOGO A [place] [id number] Insurance:[facility] CARE SHEIPLINEDOB: Community [place] MEDICAREPolicy [id number] Number: Repository [id number]: 330 [id number] [phone] () Date:6778-23-37ZV [facility] [facility] [place] [address]FN: 04/05/2018 Secondary NOT GIVENUNK [place] Insurance:SELF PAY [facility] Number: Effective Repository Date:2018-04-05 04/04/2018 DIOGO A Primary DIOGO A [place] [id number] Insurance:[employer] CARE SHEIPLINEDOB: Community [place] MEDICAREPolicy [id number] Number: Repository [id number]: 330 [id number] [phone] () Date:2726-57-86CC [address] [place] [address] 60789OZ: 04/04/2018 Secondary NOT GIVENUNK [place] Insurance:SELF PAY [facility] Hospital Number: Effective Repository Date:2018-04-04 04/03/2018 DIOGO A Primary DIOGO A [place] [id number] Insurance:[facility] CARE SHEIPLINEDOB: Community [place] MEDICAREPolicy [id number] Number: Repository [address]Mib: 330 [id number] [phone] () Date:3272-25-71DC [address] [place] [address] [id number]: 04/03/2018 Secondary NOT GIVENUNK [place] Insurance:SELF PAY [facility] Number: Effective Repository Date:2018-03-28 03/28/2018 DIOGO A Primary DIOGO A [place] [id number] Insurance:[employer] CARE SHEIPLINEDOB: Community [place] MEDICAREPolicy [id number] Number: Repository [address]Dbo: 330 [id number] [phone] (HP) Date:[id number] [address] [place] [address] 00315NR: 03/28/2018 Secondary NOT GIVENUNK [place] Insurance:SELF PAY [facility] Hospital Number: Effective Repository Date:2018-03-27 11/09/2017 Diogo A Primary Diogo A [facility] SheiplineDOB: [facility] SheiplineD[facility]: System [id number] licy Number: [id number] Repository [place] Effective Date: [place], [place] [address]Dfi: () 06/05/2017 Diogo A Primary Diogo A [place] [id number] Insurance:[facility] SheiplineDOB: Community [place] MEDICAREPolicy [id number] Number: Repository [address]Sxm: (181) [id number] [phone] () Date:9391-01-70FY [address] [place] [address] 39941ZU: 06/05/2017 Secondary NOT GIVENUNK [place] Insurance:SELF PAY [facility] Number: Effective Repository Date:2017-05-03
== END ==
PROVIDERS: Family Provider Nurse Practitioner; PCP Nurse Practitioner; Referring Provider Internal Medicine Critical Care Medicine; Visit Provider Internal Medicine Critical Care Medicine
DX: R06.02 Shortness of breath (principal)
CPT/HCPCS: 94618

== ENCOUNTER → 2019-05-16 10:14 | Outpatient (CLI) | payer MEDICARE, SELFPAY ==
[2018-12-03 13:20] VITALS: BMI 34.1
--- NOTE | 2019-05-16 10:17 | BI_ITS ---
MAMMOGRAPHY - BILATERAL SCREENING REASON FOR EXAM: Female, 73 years old. Routine annual screening examination. PERTINENT HISTORY: Non-contributory. TECHNIQUE: Digital bilateral breast andrey (3D mammographic acquisition) in the CC and MLO projections. 2-D mediolateral oblique (MLO) and craniocaudad (CC) views of both breasts were obtained. CAD: Full Field Digital Mammography with Computer Added Detection was performed. COMPARISON: Comparison is made with prior study dated June 05, 2017. FINDINGS: Breast Composition: There are scattered areas of fibroglandular density. There are no dominant masses or suspicious calcifications. Stable small benign appearing bilateral axillary lymph nodes. No other significant abnormalities are identified. There has been no significant change since the prior study. BI/SCREEN MAMM (CAD) W/ANDREY BILAT IMPRESSION: Stable bilateral screening mammogram. Yearly follow-up mammogram recommended. (A) ASSESSMENT CATEGORY: BIRADS Category 2: Benign. A letter regarding these results will be sent to the patient by the facility within 30 days. Approximately 10% of breast cancers are not detected by mammography. A normal mammogram should not delay biopsy of a clinically suspicious abnormality. [id number] Electronically Signed: Benny Mendieta, at 12:33 EST , Service support ,
== END ==
PROVIDERS: Family Provider Nurse Practitioner; PCP Nurse Practitioner; Referring Provider Nurse Practitioner; Visit Provider Nurse Practitioner
DX: Z12.31 Encounter for screening mammogram for malignant neoplasm of breast (principal)
CPT/HCPCS: 77063; 77067

== ENCOUNTER → 2019-06-03 12:40 | Outpatient (CLI) | payer MEDICARE, SELFPAY ==
[2018-12-03 13:20] VITALS: BMI 34.1
--- NOTE | 2019-06-03 14:07 | PFTCOMP_ITS ---
COMPLETE PULMONARY FUNCTION TEST INTERPRETATION Brief HPI: Patient is a 73 year old female, currently under the care of Dr. Zepeda, who presents to [facility] for complete pulmonary function tests secondary to diagnosis of COPD. Respiratory therapist reports good effort and reproducible results. Interpretation: Forced expiration spirometry shows a moderately severe large airways obstructive ventilatory defect with an FEV1 of 57% predicted. There is a significant bronchodilator response in FVC by strict ATS criteria. Spirograms are of good quality and plateau slowly, indicating slowly emptying areas of the lungs. The respiratory flow volume loop shows decreased expiratory flow rates at all lung volumes consistent with airway obstruction. Lung volumes by body plethysmography show an elevated total lung capacity at 5.7 L, 119% predicted. FRC and RV are elevated out of proportion. Lung volume measurements are consistent with hyperinflation and air-trapping. Diffusion capacity by carbon monoxide is decreased at 35% predicted. The airway resistance is slightly elevated. Compared to previous pulmonary function tests from 04/03/2018, there is been a significant reduction in DLCO by 19%. Impression: Partially reversible moderately severe large airways obstructive ventilatory defect with symmetric reduction diffusion capacity, resulting in air trapping with hyperinflation, and some decrease in function compared to 2018.
== END ==
PROVIDERS: Family Provider Nurse Practitioner; PCP Nurse Practitioner; Referring Provider Nurse Practitioner Acute Care; Visit Provider Nurse Practitioner Acute Care
DX: J44.9 Chronic obstructive pulmonary disease, unspecified (principal)
CPT/HCPCS: 94060; 94726; 94729

== ENCOUNTER → 2019-07-04 10:47 | Outpatient (CLI) | payer MEDICARE, SELFPAY ==
[2019-06-17 09:46] VITALS: BMI 33.2
[2019-07-04 11:14] VITALS: PULSE 100; PULSE 72; PULSE 82; PULSE 86; PULSE 90; PULSE 92; PULSE 94; O2SAT 86; O2SAT 88; O2SAT 89; O2SAT 90; O2SAT 91; O2SAT 92; O2SAT 94
--- NOTE | 2019-07-04 11:18 | CT_ITS ---
STUDY: LOW DOSE CT LUNG CANCER SCREENING REASON FOR EXAM: Female, 73 years old. TOBACCO DEPENDENCY. 50YR 1PPD HX. QUIT 4-5 YR AGO. Prior lt carotid endarterectomy RADIATION DOSAGE (If Supplied By Facility): CTDIvol = ( 2.55 ) mGy, DLP = ( 79.14 ) mGycm TECHNIQUE: No contrast was administered. Low dose technique was utilized (average mAS-38 and kVp 120). 1.25 mm axial source images with a slice interval of 1.25-mm were reconstructed in lung windows. 2.5 mm axial source images with a slice interval of 2.5-mm were reconstructed in lung windows. 5.0 mm axial source images with a slice interval of 5.0-mm were reconstructed in soft tissue windows. Nodule measured using lung windows on PACS and/or independent workstation with automated measurement of minimum and maximum diameter. Nodule measurement reported as average diameter rounded to the nearest whole number. Growth is defined as an increase ins size of greater than 1.5 mm. COMPARISON: None. NODULES: Total lung nodules (excluding granulomas): 0 Emphysema: Moderate emphysema present Endobronchial lesion: None Aorta: Peripheral calcifications, no aneurysm noted. Coronary arteries: Calcified coronary vessels noted Heart: Normal size Pulmonary artery: Unremarkable Mediastinal nodes: No suspicious nodes. Other chest and abdominal findings: Degenerative bony changes. CT/Low Dose CT Lung Screening IMPRESSION: Lung-RADS category 2 - Continue annual screening with LDCT in 12 months. IMPORTANT NOTES FOR USE: ACR Lung-RADS Version 1.0 Assessment Categories Release Date: August 26, 2013 Category: Coded 0-4 bases on nodule(s) with highest degree of suspicion. Negative screen is defined as categories 1 and 2; a positive screen is defined as categories 3 and 4. Category 3 and 4A nodules that are unchanged on interval CT should be coded as category 2, and individuals returned to screening in 12 months. Category 4X: Category 3 or 4 nodules with additional imaging findings that increase the suspicion of lung cancer, such as spiculation, GGN that doubles in size in 1 year, enlarged lymph notes, etc. Category Modifiers: S (significant finding unrelated to lung cancer) and C (prior history of treated lung cancer) may be added to the 0-4 Lung-RADS Electronically Signed: Dima Vergara MD at 11:53 EST , Service support ,
--- NOTE | 2019-07-04 15:32 | WT_ITS ---
PSN 6 Minute Walk Test - 6 Minute Walk Test 6 Minute Walk Test: 6 Minute Walk Test PSN:6-Minute Walk Test Start: 07/04/19 11:14 Freq: Status: Active Protocol: [id number] Document 07/04/19 11:14 SMB (Rec: 07/04/19 11:18 SMB [id number]) 6 Minute Walk Test Date Performed 07/04/19 Time Performed 10:57 Height 5 ft 5 in Weight: 88.451 kg Weight in Pounds 195.[address]: Alessandro Zepeda Assistive device used: None Pre-test Oxygen Delivery Method Room Air Pulse Ox (%) 92 Pulse Rate (60-100 beats/min) 72 Dyspnea Myrtle Scale (0-10) 4 Exertion Myrtle Scale (6-20) 11 1st minute Oxygen Delivery Method Room Air Pulse Ox (%) 89 Pulse Rate (60-100 beats/min) 90 2nd minute Oxygen Flow Rate (L/min) (L/min) 2 Oxygen Delivery Method Nasal Cannula Pulse Ox (%) 86 Pulse Rate (60-100 beats/min) 92 3rd minute Oxygen Flow Rate (L/min) (L/min) 2 Oxygen Delivery Method Nasal Cannula Pulse Ox (%) 91 Pulse Rate (60-100 beats/min) 94 4th minute Oxygen Flow Rate (L/min) (L/min) 2 Oxygen Delivery Method Nasal Cannula Pulse Ox (%) 88 Pulse Rate (60-100 beats/min) 100 Reported Symptoms Increased Work of Breathing 5th minute Oxygen Flow Rate (L/min) (L/min) 3 Oxygen Delivery Method Nasal Cannula Pulse Ox (%) 88 Pulse Rate (60-100 beats/min) 100 Number of Rests Taken 1 6th minute Oxygen Flow Rate (L/min) (L/min) 4 Oxygen Delivery Method Nasal Cannula Pulse Ox (%) 90 Pulse Rate (60-100 beats/min) 86 Post-test Oxygen Flow Rate (L/min) (L/min) 4 Oxygen Delivery Method Nasal Cannula Pulse Ox (%) 94 Pulse Rate (60-100 beats/min) 82 Dyspnea Myrtle Scale (0-10) 5 Exertion Myrtle Scale (6-20) 13 Full Laps Walked 10 Partial Lap, Number of Tiles Walked 17 Total Distance Walked (ft) 607 - Interpretation Interpretation: The patient was noted to be 92% on room air, but desaturated in the second minute of ambulation. Patient required 4 L nasal cannula to maintain appropri ate saturations throughout testing. In total, patient traveled only 607 feet over the course of 6 minutes with one break and no assistive devices. These findings are consistent with a respiratory limitation exercise tolerance. - Recommendations Recommendations: No supplemental oxygen is indicated at rest, but patient should be using 4 L nasal cannula with any exertion.
== END ==
PROVIDERS: PCP Nurse Practitioner; Referring Provider Internal Medicine Critical Care Medicine; Visit Provider Internal Medicine Critical Care Medicine
DX: Z12.2 Encounter for screening for malignant neoplasm of respiratory organs (principal); F17.211 Nicotine dependence, cigarettes, in remission; J96.11 Chronic respiratory failure with hypoxia
CPT/HCPCS: 94618; G0297

== ENCOUNTER → 2019-10-16 10:20 | Outpatient (CLI) | payer MEDICARE, SELFPAY ==
[2019-10-07 07:59] VITALS: BMI 33.3
--- NOTE | 2019-10-16 10:27 | BD_ITS ---
STUDY: DUAL ENERGY X-RAY ABSORPTIOMETRY / DXA REASON FOR EXAM: Female, 74 years old. 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 COMPARISON: Comparison is made with prior examination dated May 26, 2016. FINDINGS: Lumbar Spine (L1-L4): g/cm2 (1.233) / T-score (0.6) / Z-score (2.3) Findings are suggestive of normal bone density with a low fracture risk. Left Femur Total: g/cm2 (0.836) / T-score (-1.4) / Z-score (0.4) Left Femoral Neck: g/cm2 (0.789) / T-score (-1.8) / Z-score (0.1) Right Femur Total: g/cm2 (0.808) / T-score (-1.6) / Z-score (0.2) Right Femoral Neck: g/cm2 (0.766) / T-score (-2.0) / Z-score (0.0) The T-Scores on the most recent prior examination were: Lumbar Spine (L1-L4): There has been improvement of bone density since the previous examination. Left Femur Total: which represents an improvement of 3.6%. Right Femur Total: which represents a worsening of 1.1%. BD/Dexa Bone Density Study IMPRESSION: The patient is considered osteopenic as outlined below according to World Perez Organization (WHO) criteria with a moderate fracture risk. There has been improvement of bone density since the previous examination. Reference Information: The T-score is the number of standard deviations above or below the standard which is normal for young adults at their peak bone mineral density. The World Health Organization (WHO) interprets the T-scores as follows: Above -1 Normal bone density Between -1 and -2.5 Osteopenia Equal to / or below -2.5 Osteoporosis As a practical clinical guideline, osteopenia may be graded as follows: Mild -1 through -1.5 Moderate -1.6 through -2.0 Severe -2.1 through -2.4 The Z-score is the number of standard deviations above or below age-matched controls. A Z-score of less than -1.5 would be considered abnormal. References: 1. NIH Osteoporosis and Related Bone Diseases http://www.osteo.org 2. International Society for Clinical Densitometry http://www.iscd.org 3. National Osteoporosis Foundation http://www.nof.org Electronically Signed: Benny Mendieta, at 13:30 EDT , Service support ,
== END ==
PROVIDERS: PCP Nurse Practitioner; Referring Provider Nurse Practitioner; Visit Provider Nurse Practitioner
DX: Z78.0 Asymptomatic menopausal state (principal); M85.80 Other specified disorders of bone density and structure, unspecified site; J44.9 Chronic obstructive pulmonary disease, unspecified; Z99.81 Dependence on supplemental oxygen; Z87.891 Personal history of nicotine dependence
CPT/HCPCS: 77080

== ENCOUNTER → 2019-10-29 11:01 | Outpatient (CLI) | payer MEDICARE, SELFPAY ==
[2019-10-07 07:59] VITALS: BMI 33.3
== END ==
PROVIDERS: PCP Nurse Practitioner; Referring Provider Nurse Practitioner; Visit Provider Nurse Practitioner
DX: I10 Essential (primary) hypertension (principal)
CPT/HCPCS: 93225; 93226

== ENCOUNTER → 2019-11-07 15:04 | Outpatient (CLI) | payer MEDICARE, SELFPAY ==
[2019-11-07 14:21] VITALS: BMI 33.3
--- NOTE | 2019-11-07 15:30 | RAD_ITS ---
STUDY: X-RAY CHEST REASON FOR EXAM: Female, 74 years old. INCREASED SOB TECHNIQUE: PA and lateral views of the chest. COMPARISON: Comparison is made with prior study dated May 16, 2011. FINDINGS: There now is evidence of increased interstitial markings with confluence at the lung bases. This is suggestive of a chronic interstitial fibrosis although superimposed atelectasis and/or infiltrate cannot be excluded. There is blunting of the right costophrenic angle. Mild degree of vascular congestion. Normal size heart. Normal mediastinum and malik. Normal visualized pulmonary arteries. There is atherosclerotic calcification of the aortic arch with tortuosity. There are mild degenerative changes of the visualized thoracic spine. Normal visualized ribs, clavicles, and shoulders. There is no demonstrated abnormality of the visualized soft tissue structures of the upper abdomen. RAD/Chest PA and Lateral IMPRESSION: Mild degree of vascular congestion with increase in tissue markings at the lung bases suggestive of scarring and/or atelectasis. Follow-up is recommended. Electronically Signed: Benny Mendieta, at 15:57 EDT , Service support ,
[2019-11-07 15:38] LABS: Anion Gap 3 (5-15); BUN 22 mg/dL (7-18); BUN/Creat Ratio 22.6 RATIO (10-20); Calcium,Total 9.3 mg/dL (8.5-10.1); Chloride 106 mmol/L (98-107); Creatinine, Serum 0.98 mg/dL (0.55-1.02); EST Glomerular Filtration Rate 59 mL/min (>60); Est Glom Filt Rate - Afr Amer 72 mL/min (>60); Glucose 100 mg/dL (74-106); Potassium 4.1 mmol/L (3.5-5.1); Sodium Level 140 mmol/L (136-145)
[2019-11-07 15:49] LABS: BNP,B-Type NATRIURETIC PEPTIDE 767.5 pg/mL (0-100)
[2019-11-07 16:11] LABS: D-Dimer Quantitative (DVT/PE) 0.98 FEU/ug/m (0.27-0.49)
== END ==
PROVIDERS: PCP Nurse Practitioner; Referring Provider Nurse Practitioner Acute Care; Visit Provider Nurse Practitioner Acute Care
DX: R06.02 Shortness of breath (principal)
CPT/HCPCS: 36415; 71046; 80048; 83880; 85379

== ENCOUNTER → 2019-12-03 20:33 | Outpatient (CLI) | payer MEDICARE, SELFPAY ==
[2019-11-21 09:12] VITALS: BMI 33.3
== END ==
PROVIDERS: PCP Nurse Practitioner; Visit Provider Nurse Practitioner Acute Care
DX: G47.33 Obstructive sleep apnea (adult) (pediatric) (principal)
CPT/HCPCS: 95810

== ENCOUNTER 2019-12-07 05:16 | Inpatient (IN) | payer MEDICARE, SELFPAY ==
[2019-11-21 09:12] VITALS: BMI 33.3
[2019-12-07] VITALS (12 sets, daily range): BP systolic 141–178; BP diastolic 66–101; PULSE 73–97; RESP 16–22; TEMP 36.3–36.9; O2SAT 93–98; BMI 35.2; BMI 33.7
--- NOTE | 2019-12-07 05:28 | EKG12_ITS ---
Test Reason : SOB Blood Pressure : / mmHG Vent. Rate : 082 BPM Atrial Rate : 082 BPM P-R Int : 140 ms QRS Dur : 102 ms QT Int : 360 ms P-R-T Axes : 015 033 013 degrees QTc Int : 420 ms Sinus rhythm with frequent Premature ventricular complexes Nonspecific ST and T wave abnormality Abnormal ECG Confirmed by SHARRI MOBLEY, YOSEPH ([id number]), editor managing newspaper AIDAN SHIELDS ([id number]) on 12/09/2019 8:57:51 AM Referred By: HUMBERTO Confirmed By:YOSEPH HARRELL MD
--- NOTE | 2019-12-07 05:29 | ED.VIS.GEN ---
History of Present Illness Chief Complaint: Shortness of Breath Informant: Patient, Family Narrative: Stated she did not really go to bed tonight because she was short of breath. Around midnight she had an episode where she became short of breath. She is normally on 4 L oxygen at home. Her family member came over and turned up to 5 L and called EMS. She stated her pulse ox was in the 80s at home. She stated she has been getting these exacerbations quite frequently where she gets worsening short of breath. She had a sleep study earlier this week. She sees pulmonology. She has her first visit with cardiology soon as an outpatient. No history of ACS or myocardial infarction. She does not have a new cough. No coronavirus exposures. She does have significant COPD. Symptoms are worsened by nothing. Relieved by nothing. She has albuterol at home but not a nebulizer. She is unsure if she is wheezing. - Past Medical History (1) Arrhythmia Status: Acute (2) ANTIONETTE (obstructive sleep apnea) Status: Acute (3) Respiratory failure with hypoxia Status: Acute (4) Shortness of breath Status: Acute (5) Stage 3 severe COPD by GOLD classification Status: Acute (6) Chronic hypoxemic respiratory failure Status: Chronic (7) Nicotine dependence, cigarettes, in remission Status: Chronic Past Medical History - Allergies and Home Meds Allergies/Adverse Reactions: Allergies No Known Allergies Allergy (Unverified 11/21/19 14:10) Primary Care Physician: Rina Valle NP-C [Primary Care Provider] - Prior records reviewed: Yes Past Medical History: - - See problem list Surgical History: - - Reviewed Smoking Status: Former smoker Alcohol: None Drugs: None Review of Systems General: Denies: Chills, Fever, Sweats Eyes: Denies: Visual changes - bilaterally, Diplopia ENT: Denies: Rhinorrhea, Sore throat Cardiovascular: Denies: Chest pain, Palpitations Respiratory: Reports: Dyspnea, Dyspnea on exertion. Denies: Cough Gastrointestinal: Denies: Abdominal pain, Nausea, Vomiting, Diarrhea, Melena, Hematochezia Genitourinary: Denies: Dysuria, Hematuria, Frequency Musculoskeletal: Denies: Back pain, Extremity Pain Skin: Denies: Rash, Wounds Neurological: Denies: Headache, Weakness, Numbness Physical Exam Vital Signs/Narrative: Vital Signs Temp Pulse Resp BP Pulse Ox 12/07/19 05:17 98.3 F 90 22 H 154/101 H 94 General: Well nourished, Well developed, No Acute Distress Head: Normocephalic, Atraumatic Eyes: Perrl, EOMI ENT: Moist mucous membranes, No rhinorrhea Neck: Supple, Nontender Cardiovascular: Regular rate, Regular rhythm, No murmurs Respiratory: No distress, Chest nontender, Wheezing - Mild expiratory, Decreased Air Movement. Negative for: Rales, Rhonchi, Retractions, Chest tenderness Abdomen: Soft, Nontender, Nondistended, Normal bowel sounds Back: Nontender, Normal Inspection Extremities: Nontender, No edema Skin: Normal color, No rash Neurological: Alert, Oriented x3, Cranial nerves II-XII grossly intact, Normal Strength, Normal Sensation Psychological: Normal affect, Normal Mood Diagnostic/Tx/Re-eval - Medical Decision Making IV established and lab work obtained. Patient given DuoNeb breathing treatment for wheezing. Chest x-ray and EKG obtained.. Lab work shows a troponin at 1.5 consistent with non-STEMI. EKG showed sinus rhythm at a rate of 82. PVCs noted. Nonspecific ST and T wave abnormalities without STEMI. Beta natruretic peptide greater than the thousand consistent with CHF picture likely secondary to her MO. Previous ejection fraction was 55% on echocardiogram in 2014. She has never had a stress test or heart cath. Discussed with cardiology Dr. Jenkins patient will be loaded with Plavix and given a heparin bolus followed by drip for her acute coronary syndrome. Have a low suspicion for pulmonary embolism. She has no risk factors for this. She has no asymmetric swelling or pain in her legs. Her symptoms are acutely worsening shortness of breath which I suspect is CHF from her MO. She feels much better after treatment in the emergency department. Also given IV Lasix. Will be discussed with the hospitalist and admitted. - Critical Care Time Critical care time (excluding procedures): 30-74 minutes ED Disposition - Plan for ED Patient: Disposition: Acute Care Hospital [facility] Diagnosis: Acute coronary syndrome, Non-ST elevation myocardial infarction (NSTEMI), CHF (congestive heart failure)
[2019-12-07 05:38] LABS: Absolute Lymphocyte Count 1.14 X10^3/uL (0.83-4.51); Absolute Neutrophil Count 5.1 X10^3/uL (2.0-7.7); Basophil# 0.03 X10^3/uL; Basophil% 0.4 % (0-1); Eosinophil# 0.24 X10^3/uL; Eosinophils% 3.4 % (0-5); Hematocrit 33.8 % (37-47); Hemoglobin 11.2 g/dL (12.0-15.0); Lymphocyte # 1.14 X10^3/ul (4.0); Lymphocyte % 15.9 % (19-41); Mean Corp Hgb Conc 33.1 g/dL (32-36); Mean Corpuscular Hgb 31.3 pg (27.0-32.0); Mean Corpuscular Volume 94.4 fL (81-99); Monocyte% 8.4 % (0-10); NRBC Flagged by Analyzer 0 % (0-5); Neutrophil # 5.12 X10^3/uL (2.7-7.7); Neutrophil % 71.5 % (47-70); Platelet Count 226 K/mm3 (150-450); RBC Distribution Width CV 13.2 % (11.6-14.6); RBC Distribution Width SD 45.3 fl (35.1-43.9); Red Blood Count 3.58 M/mm3 (4.2-5.4); White Blood Count 7.2 K/mm3 (4.4-11.0)
[2019-12-07] MEDS: Ipratropium/Albuterol Sulfate 3 ML AMPUL.NEB INHALATION ×3 (05:38→19:54)
[2019-12-07 05:55] LABS: BNP,B-Type NATRIURETIC PEPTIDE 1179.9 pg/mL (0-100)
[2019-12-07 06:01] LABS: Anion Gap 6 (5-15); BUN 24 mg/dL (7-18); BUN/Creat Ratio 21.2 RATIO (10-20); Calcium,Total 9.2 mg/dL (8.5-10.1); Chloride 102 mmol/L (98-107); Creatinine, Serum 1.13 mg/dL (0.55-1.02); EST Glomerular Filtration Rate 50 mL/min (>60); Est Glom Filt Rate - Afr Amer 60 mL/min (>60); Estimated Creatinine Clearance 38.71 ml/min; Glucose 113 mg/dL (74-106); Potassium 3.6 mmol/L (3.5-5.1); Sodium Level 138 mmol/L (136-145)
--- NOTE | 2019-12-07 06:04 | RAD_ITS ---
STUDY: X-RAY CHEST REASON FOR EXAM: Female, 74 years old. Sudden onset of SOB at 0000. Patient with COPD and on 4 L of oxygen at all times at home. Per patient and quot;pulse ox dipped to mid 80s on 4 L. and quot; TECHNIQUE: PA and lateral views of the chest. COMPARISON: 11/07/2019 FINDINGS: Increase in the reticular interstitial opacities throughout the lungs consistent with worsening interstitial pulmonary edema. Small bilateral pleural effusions. There is moderate cardiac enlargement. Normal mediastinum and malik. There is prominence of the pulmonary hilar arteries and peripheral pulmonary arteries, consistent with congestive heart failure (CHF). Normal visualized aortic arch and descending thoracic aorta. Normal visualized thoracic spine. Normal visualized ribs, clavicles, and shoulders. There is no demonstrated abnormality of the visualized soft tissue structures of the upper abdomen. RAD/Chest PA and Lateral IMPRESSION: Worsening moderate congestive heart failure. Electronically Signed: Shravan Michelle MD at 6:44 EDT Tel , Service support ,
[2019-12-07] MEDS: Aspirin 325 MG Tablet PO (06:25)
[2019-12-07] MEDS: Furosemide 20 MG/2 ML VIAL IV (06:26)
[2019-12-07 06:45] LABS: Partial Thromboplast Time 28.9 Seconds (24.1-36.2)
[2019-12-07] MEDS: Clopidogrel Bisulfate 300 MG Tablet PO (06:55)
[2019-12-07] MEDS: Nitroglycerin SL (ED/IMG/CATH) 0.4 MG TABLET SUBLINGUAL (06:56)
[2019-12-07] MEDS: Heparin Injection (Vial) 5,000 UNIT/ML VIAL 7500 UNIT IV (06:59)
--- NOTE | 2019-12-07 08:26 | ECHOD_ITS ---
Reason For Study: CHF Procedure This was a 2D Doppler, Color Flow transthoracic echocardiogram. The study was technically difficult. Exam performed portable in patient room. Left Ventricle Mildly dilated left ventricle. Mild concentric left ventricular hypertrophy. Moderate global left ventricular systolic dysfunction. The estimated ejection fraction is 35 %. Transmitral diastolic flow velocities suggest moderate (stage 2) diastolic dysfunction (pseudonormal pattern). Right Ventricle Normal RV size. Normal systolic function. Atria The left atrium is moderately enlarged. Normal right atrium. No doppler evidence for ASD. Mitral Valve There is no mitral annular calcification. Mild diffuse mitral valve thickening. Mild papillary muscle dysfunction of the mitral valve. Moderately severe (3+) mitral valve insufficiency. Tricuspid Valve Normal tricuspid valve. Mild tricuspid valve insufficiency. Right ventricular systolic pressure estimated to be 67 mmHg. Aortic Valve Trisinus/trileaflet aortic valve. Normal aortic valve. Pulmonic Valve The pulmonic valve is not well visualized. Trivial eccentric pulmonic valve insufficiency. Great Vessels Normal sized aortic root. Pericardium/Pleural No pericardial effusion. MMode/2D Measurements & Calculations LVIDd: 5.9 cm IVSd: 1.4 cm Ao root diam: 2.9 cm LVIDs: 5.0 cm LVPWd: 1.3 cm RVDd: 3.4 cm FS: 14.2 % LAV(MOD-bp): 105.7 ml LVAd ap4: 39.8 cm2 SV(MOD-sp4): 44.5 ml LAV(MOD-bp) Indexed: 52.3 ml/m2 EDV(MOD-sp4): 147.7 ml LAV(MOD-sp2): 97.6 ml EDV(sp4-el): 149.5 ml LAV(MOD-sp4): 96.6 ml LVAs ap4: 30.1 cm2 ESV(MOD-sp4): 103.2 ml ESV(sp4-el): 99.9 ml EF(MOD-sp4): 30.1 % EF(sp4-el): 33.2 % SV(sp4-el): 49.6 ml LA A4 area: 28.2 cm2 LA dimension(2D): 5.3 cm RA A4 area: 16.4 cm2 Doppler Measurements & Calculations MV E max neri: 91.3 cm/sec Lat Peak E' Neri: 7.7 cm/sec Med Peak E' Neri: 5.9 cm/sec MV A max neri: 61.5 cm/sec E/E' lat: 11.9 E/E' med: 15.6 MV E/A: 1.5 Ao V2 max: 105.2 cm/sec LV V1 max: 80.0 cm/sec PA V2 max: 63.6 cm/sec Ao max P.4 mmHg LV V1 max P.6 mmHg Ao V2 mean: 74.8 cm/sec Ao mean P.4 mmHg Ao V2 VTI: 17.4 cm TR max neri: 383.7 cm/sec TR max P.9 mmHg Interpretation Summary The study was technically difficult. Mildly dilated left ventricle. Moderate global left ventricular systolic dysfunction. The estimated ejection fraction is 35 %. Mild concentric left ventricular hypertrophy. The left atrium is moderately enlarged. Mild diffuse mitral valve thickening. Mild papillary muscle dysfunction of the mitral valve. Moderately severe (3+) mitral valve insufficiency. Mild tricuspid valve insufficiency. Trivial eccentric pulmonic valve insufficiency. Right ventricular systolic pressure estimated to be 67 mmHg. Transmitral diastolic flow velocities suggest diastolic dysfunction (pseudonormal pattern). Ordering Physician: Saad Singh Referring Physician: Rina Valle Performed By: Breonna Bynum, CELESTINO, RVT
[2019-12-07 08:35] LABS: Probe Check PASS; Specimen Processing Control PASS
--- NOTE | 2019-12-07 09:25 | HP.PCM_ITS ---
Problem List (1) Stage 3 severe COPD by GOLD classification Status: Chronic (2) Chronic hypoxemic respiratory failure Status: Chronic (3) ANTIONETTE (obstructive sleep apnea) Status: Suspected (4) Non-ST elevation myocardial infarction (NSTEMI) Status: Acute (5) CHF (congestive heart failure) Status: Acute History of Present Illness Date of Admission: 12/07/19 Chief Complaint: Shortness of breath. The patient is a 74 year old F with past medical history as mentioned above presented to the emergency room because of shortness of breath. Her symptoms started last night around 11 PM with shortness of breath, at rest, aggravated by even minimal activity, not relieved with rest, increased her oxygen of up to 5 L with no improvement and associated with mild chronic dry cough. She could not sleep last night because of persistent shortness of breath. She denied fever or chills. She denied sore throat, nasal sinus congestion. She mentioned that lately in the last several weeks, she has been having gradually increasing shortness of breath. Normally, she uses oxygen at home at 4 L for COPD. Her daughter mentioned that she had sleep study done in the last few days but they have no information about the results. Patient denied any chest pain, palpitation, dizziness, lightheadedness, syncope or presyncope. In the emergency department, she was afebrile, heart rate stable, pressure slightly elevated, was dyspneic, pulse ox was 94% on 6 L. Routine blood work was remarkable for hemoglobin of 11.2 g/dL, BUN of 24, creatinine is 1.13. Her EKG revealed normal sinus rhythm with occasional PVCs, no acute ischemic changes. Troponin was 1.5. BNP was 1179. Chest x-ray revealed small right pleural effusion, fluid in the fissure on the right side as well as pulmonary vascular congestion more on the right side. Patient received IV heparin bolus, started on IV heparin drip, received loading dose of Plavix and 1 dose of IV Lasix in the emergency department. She is being admitted for acute non-ST elevation [place], acute CHF and probable acute COPD exacerbation. Past Medical History Past Medical History (Chronic Problems): Chronic Problems (Last Updated 12/07/19 @ 09:[address] Saad Singh MD) Stage 3 severe COPD by GOLD classification (Chronic) Chronic hypoxemic respiratory failure (Chronic) Nicotine dependence, cigarettes, in remission (Chronic) Medical History: Medical History (Last Updated 12/07/19 @ 09:[address] Saad Singh MD) Abdominal aortic aneurysm I71.4 Urinary incontinence R32 Abnormal ankle brachial index (MARIAMA) R68.89 Anemia D64.9 Arterial occlusive disease I70.90 COPD (chronic obstructive pulmonary disease) J44.9 Carotid artery stenosis, unilateral I65.29 Hypercholesterolemia E78.00 Osteopenia M85.80 Allergies No Known Allergies Allergy (Unverified 11/21/19 14:10) Home Medications: Ambulatory Orders Medication Instructions Recorded Albuterol Inhaler [Ventolin Hfa 2 puff INHALATION Q4H PRN PRN 03/23/16 (SP)] Aspirin E.C. [Ecotrin] 81 mg PO DAILY@0800 03/23/16 Naproxen Sodium [Aleve] 880 mg PO 03/23/16 ascorbic acid (vitamin C) 1,000 mg 1,000 mg PO QDAY tab 03/26/18 tablet calcium carbonate 550 mg-magnesium 1 tab PO Q6H PRN tab 03/26/18 hydroxide 110 mg chewable tablet calcium carbonate 600 mg calcium 1,200 mg PO BID tab 03/26/18 (1,500 mg) tablet cholecalciferol (vitamin D3) 1,250 50,000 unit PO QWEEK 03/26/18 mcg (50,000 unit) capsule diphenhydramine 25 1 tab PO QHS PRN 03/26/18 mg-acetaminophen 500 mg tablet glucosamine 750 sq-[id number] 1 tab PO QDAY tab 03/26/18 no.7 644 mg-vit M-cqebih-wgeiv tablet rosuvastatin 10 mg tablet 10 mg PO DAILY 03/26/18 albuterol sulfate 90 mcg/actuation 2 puff INHALATION Q4H PRN #3 ea 06/17/19 aerosol inhaler tiotropium bromide 2.5 2 puff INHALATION QDAY #1 ea 06/17/19 mcg/actuation mist for inhalation budesonide-formoterol HFA 160 2 puff INHALATION BID #3 ea 10/07/19 mcg-4.5 mcg/actuation aerosol inhaler montelukast 10 mg tablet 10 mg PO QPM #30 tab 10/07/19 furosemide 40 mg tablet 40 mg PO DAILY #7 tab 11/08/19 potassium chloride 20 mEq 20 meq PO DAILY #7 tab 11/08/19 tablet,extended release(part/cryst) Surgical History: Surgical History (Last Reviewed 12/07/19 @ 09:[address] Saad Singh MD) H/O dilation and curettage Z98.890 H/O hemorrhoidectomy Z98.890 H/O tubal ligation Z98.51 History of appendectomy Z90.49 Surgical History: - - Carotid endarterectomy. Psychiatric History: No pertinent psych hx Lives: Alone Smoking Status: Former smoker Alcohol: None Drugs: None - *Family History Maternal Family History: Family History (Last Reviewed 11/07/19 @ 14:25 by BOO Sullivan) Mother Hypertension History Items: No pertinent history Paternal Family History: Family History (Last Reviewed 11/07/19 @ 14:25 by BOO Sullivan) Mother Hypertension History Items: No pertinent history Review of Systems Constitutional: Denies: Anorexia, Chills, Fever, Weakness Eyes: Denies: Blurred vision, Double vision, Drainage, Redness HEENT: Denies: Difficulty Hearing, Ear Pain, Eye Pain, Nasal Congestion, Sore Throat Cardiovascular: Denies: Chest Pain, Claudication, Chest Tightness, Edema, Heaviness, Light Headedness, Orthopnea, Syncope Respiratory: Reports: Cough, Shortness of Breath, Shortness of breath at rest, Shortness of breath upon exertion. Denies: Hemoptysis, Pleuritic Pain, Sputum production, Wheezing Gastrointestinal: Denies: Abdominal Pain, Constipation, Diarrhea, Nausea, Vomiting Genitourinary: Denies: Dysuria, Frequency, Hematuria Musculoskeletal: Denies: Arm Pain, Back Pain, Foot Pain Skin: Denies: Dryness, Rash Neurological: Denies: Balance problems, Double vision, Change in Speech, Slurred speech, Confusion, Headaches, Incoordination Psychiatric: Denies: Anxiety, Depression Endocrine: Denies: Change in Body Habitus, Polydipsia, Polyuria VTE Information - Inpt Only VTE Present on Admission: No VTE Mechan Device Prophylaxis: None VTE Pharm Prophylaxis ordered?: No Patient Problems: Active and Suspected Problems (Last Updated 12/07/19 @ 09:[address] Saad Singh MD) Non-ST elevation myocardial infarction (NSTEMI) (Acute) CHF (congestive heart failure) (Acute) - Physical Exam Vitals/I&O's: Vital Signs Temp Pulse Resp BP Pulse Ox 97.3 F L 97 20 H 160/95 H 94 12/07/19 07:36 12/07/19 08:29 12/07/19 07:36 12/07/19 07:36 12/07/19 07:36 Oxygen Flow Rate (L/min) 6 Oxygen Delivery Method Nasal Cannula Weight: 211 lb 10.3 oz Body Mass Index (BMI) 35.2 General: Alert, Oriented x3, Cooperative, - - Minimally short of breath. HEENT: Atraumatic, PERRLA, EOMI, Normocephalic Oral: Moist Mucosa, No Gingival or Mucosal Lesions/ Ulcerations Neck: Supple, No JVD, Negative Carotid Bruits, Trachea Midline, Thyroid Normal Size and Texture Lungs: No wheeze, Diminished, Rales, Rhonchi, Short of Breath, - - Decreased breath sounds bilateral, bilateral faint basilar crackles. Cardiovascular: Regular rate, Regular Rhythm, Normal S1, Normal S2, PMI Normal Abdomen: Bowel Sounds Present, Soft, Non Tender, Non-Distended, No Hepato- splenomegaly Extremities: No cyanosis, Edema - + Edema. Skin: No rashes, No breakdown Lymphatic: No Cervical, Supraclavicular, or Inguinal Adenopathy Neurological: Cranial nerves II-XII grossly intact, Motor Exam 5/5 strength throughout Psych/Mental Status: Normal Affect, Appropriate, Alert and oriented to time, place, person, mood and affect Laboratory Results 12/07/19 05:26: WBC 7.2, RBC 3.58 L, Hgb 11.2 L, Hct 33.8 L, MCV 94.4, MCH 31.3, MCHC 33.1, RDW Std Deviation 45.3 H, RDW Coeff of Meredith 13.2, Plt Count 226, MPV 10.0, Immature Gran % (Auto) 0.400, Neut % (Auto) 71.5 H, Lymph % (Auto) 15.9 L, [place] % (Auto) 8.4, Eos % (Auto) 3.4, Baso % (Auto) 0.4, Absolute Neuts (auto) 5.1, Absolute Lymphs (auto) 1.14, Nucleated RBC % 0 12/07/19 05:26: Sodium 138, Potassium 3.6, Chloride 102, Carbon Dioxide 30.0, Anion Gap 6, BUN 24 H, Creatinine 1.13 H, Estim Creat Clear Calc 38.71, Est GFR (MDRD) Af Amer 60, Est GFR (MDRD) Non-Af 50 L, BUN/Creatinine Ratio 21.2 H, Glucose 113 H, Calcium 9.2, Troponin I 1.500 H* 12/07/19 05:26: B-Natriuretic Peptide 1179.9 H 12/07/19 05:26: APTT 28.9 12/07/19 05:26: PT 13.0, INR 1.0 12/07/19 07:35: COVID-19 (SARIKA) Negative 12/07/19 09:00: Total Bilirubin Pending, Direct Bilirubin Pending, AST Pending, ALT Pending, Alkaline Phosphatase Pending, Troponin I Pending, Total Protein Pending, Albumin Pending, TSH Pending Current Medications Acetaminophen (Tylenol) 650 mg PO Q6H PRN PRN PRN Reason: Pain Score 1-10/Temp > 100.7 F Albuterol Sulfate (Ventolin Aerosols) 2.5 mg INHALATION Q4H PRN PRN PRN Reason: Shortness of breath, wheezing Albuterol/Ipratropium (Duoneb) 3 ml INHALATION Q6H.RT SHAYNE Aspirin (Ecotrin) 81 mg PO DAILY@0800 [facility] Atorvastatin Calcium (Lipitor) 40 mg PO QHS [facility] Carvedilol (Coreg) 6.25 mg PO BID [facility] Heparin Sodium/Sodium Chloride () 25,000 unit in 250 mls @ 14 mls/hr IV .[id number] [facility]; Protocol Last Admin: 12/07/19 07:02 Dose: 1,400 units/hr, 14 mls/hr Documented by: Ondansetron HCl (Zofran) 4 mg IV Q8H PRN PRN PRN Reason: NAUSEA/VOMITING Senna/Docusate Sodium (Senokot-S, Sera-Colace) 2 tablet PO BID PRN PRN PRN Reason: Constipation Sodium Chloride () 10 - 40 ml IV UD PRN PRN Reason: SALINE FLUSH Zolpidem Tartrate (Ambien (Generic)) 5 mg PO QHS PRN PRN PRN Reason: INSOMNIA Assessment/Plan All Active Problems (Last Updated 12/07/19 @ 09:[address] Saad Singh MD) Non-ST elevation myocardial infarction (NSTEMI) (Acute) CHF (congestive heart failure) (Acute) This is a 74 years old female patient presented to the emergency room because of worsening shortness of breath and she was found to have acute non-ST elevation [place], acute CHF and acute COPD exacerbation. #1 acute non-ST elevation [place]: EKG reviewed, no acute ischemic changes. Troponins elevated. Patient denied any past cardiac history. Plan: Admit to PCU, cardiac monitoring, serial cardiac enzymes, repeat EKG tomorrow morning, start aspirin, continue IV heparin drip, Coreg, statins, 2D echocardiogram, check fasting lipid profile, TSH, pro time and INR, cardiology consult, repeat CBC and BMP tomorrow morning, PT OT evaluation and treatment. #2 acute CHF: Probably diastolic, based on symptoms of shortness of breath, chest x-ray findings and elevated BNP. Plan: Fluid restriction, IV Lasix, start Coreg, statins, 2D echocardiogram, oxygen by nasal cannula to keep O2 saturation more than 92%. #3 acute COPD exacerbation: Chest x-ray reviewed. COVID-19 PCR came back negative. Plan: DuoNeb every 6 hours, Pulmicort twice daily, O2 by nasal cannula to keep O2 saturation more than 92%, incentive spirometer. #4 renal insufficiency: Unknown if this is acute or chronic. Admission BUN was 24, creatinine is 1.13. Patient will be on IV Lasix, kidney function may worsen, plan to monitor. #5 COPD/chronic respiratory failure: On home oxygen at 4 L. Chest x-ray reviewed as above. Plan as above. #6 hyperlipidemia: Continue statins, check fasting lipid profile. #7 suspected obstructive sleep apnea: Patient had recent sleep study as outpatient, no documents available in her chart. Recommend follow-up with pulmonology as outpatient. #8 CODE STATUS: Full code, discussed with the patient and her daughter. #9 DVT prophylaxis: She will be on IV heparin drip. This note was generated with [employer] dictation software. It may contain incorrect words, spelling, and punctuation that were not noted in checking the note before signing. Inpatient E&M: [id number] Init Hosp L3
[2019-12-07 09:45] LABS: AST(SGOT) 23 U/L (15-37); Alanine Aminotransfer ALT/SGPT 22 U/L (13-56); Albumin, Serum 3.6 g/dL (3.2-5.0); Alkaline Phosphatase 67 U/L (45-117); Bilirubin, Direct 0.28 mg/dL (0.00-0.30); Globulin 3.8 g/dL (2.2-4.2); Protein, Total 7.4 g/dL (6.4-8.2); Thyroid Stim Hormone (TSH) 0.68 uIU/mL (0.358-3.74)
[2019-12-07 10:12] LABS: Cholesterol 164 mg/dL (200); High Density Lipoprotein 70 mg/dL; Triglycerides 61 mg/dL; Very Low Density Lipoprotein 12 mg/dL (5-40)
--- NOTE | 2019-12-07 10:52 | CON.PCM_ITS ---
Problem List (1) Non-ST elevation myocardial infarction (NSTEMI) Status: Acute (2) CHF (congestive heart failure) Status: Acute Qualifiers: Heart failure chronicity: unspecified (3) Cardiac dysrhythmia Status: Acute (4) HLD (hyperlipidemia) Status: Acute (5) HTN (hypertension) Status: Chronic (6) Stage 3 severe COPD by GOLD classification Status: Chronic (7) ANTIONETTE (obstructive sleep apnea) Status: Suspected (8) Chronic hypoxemic respiratory failure Status: Chronic Reason for Consult Date of Consultation: 12/07/19 History of Present Illness: The patient is a 74 year olddse-eynf-meh white female with a past history which apparently has included hyperlipidemia and hypertension as well as severe COPD and obstructive apnea requiring home medical therapy including home continuous nasal cannula O2 support presents for worsening shortness of breath/dyspnea/hypoxemia and subsequent findings of abnormal cardiac enzymes/troponin I level concerning for non-ST segment elevation [place]. The patient states that she notes over the last 6 months her breathing has worsened. She has gone from requiring PCP evaluation and care to pulmonology evaluation and care which has now included home medical therapy and home O2 therapy via nasal cannula from PRN to continuous use. She states also recently she was noted to develop hypertension and she states on examination she was told she had an irregular heartbeat. She noted last night she had worsening shortness of breath and dyspnea compatible with orthopnea. She notes despite taking her medical therapy and continuously using her O2 therapy she cannot breathe comfortably and thus was brought to the hospital for further evaluation. She did not complain of chest discomfort or obvious palpitations. There was no near syncope or syncope. She does admit she has had an element of lower extremity peripheral pitting edema. In the emergency department she was evaluated. She was noted to have an abnormal troponin I level and an abnormal BNP level. An ECG was performed which appeared to demonstrate sinus rhythm with occasional PVCs with nonspecific ST and T wave abnormality. A chest x-ray which was performed which on preliminary evaluation suggests, despite being a portable chest x-ray, possible cardiomegaly as well as increased pulmonary vascularity and increased interstitial markings- progressing from a previous chest x-ray of approximately 1 month ago. She was treated medically based upon her cardiovascular findings with agent such as aspirin, clopidogrel/Plavix, and IV heparin. She was also given IV diuretics. She was placed in the PCU for further evaluation and care. In the interim she has had a recent Holter monitor performed. This demonstrated findings of sinus rhythm with PACs with findings compatible with ectopic atrial rhythm/tachycardia as well as frequent PVCs with findings of ventricular bigeminy and trigeminy and wide-complex runs with the longest run being 7 beats compatible with an accelerated idioventricular rhythm and the fastest run being 4 beats appearing compatible with aberrancy versus ventricular ectopy with no symptoms reported. She states based upon the aforementioned findings she was scheduled for future outpatient cardiovascular consultation. He does not recall any other cardiovascular testing in the interim. Of note she states despite receiving IV diuretics today she still feels short of breath and dyspneic. This despite wearing her O2 nasal cannula therapy. [] Past Medical History Allergies/Adverse Reactions: Allergies No Known Allergies Allergy (Unverified 11/21/19 14:10) Home Medications: Ambulatory Orders Medication Instructions Recorded Aspirin E.C. [Ecotrin] 81 mg PO DAILY@0800 03/23/16 rosuvastatin 10 mg tablet 10 mg PO DAILY 03/26/18 Furosemide 20 mg PO DAILY 12/07/19 Montelukast Sodium 10 mg PO DAILY 12/07/19 Past Medical History (Chronic Problems): Chronic Problems (Last Updated 12/07/19 @ 09:[address] Saad Singh MD) HTN (hypertension) (Chronic) Stage 3 severe COPD by GOLD classification (Chronic) Chronic hypoxemic respiratory failure (Chronic) Nicotine dependence, cigarettes, in remission (Chronic) Surgical History: - - Carotid endarterectomy. Psychiatric History: No pertinent psych hx - *Family History Maternal Family History: Family History (Last Reviewed 11/07/19 @ 14:25 by BOO Sullivan) Mother Hypertension History Items: No pertinent history Paternal Family History: Family History (Last Reviewed 11/07/19 @ 14:25 by BOO Sullivan) Mother Hypertension History Items: No pertinent history Lives: Alone Smoking Status: Former smoker Alcohol: None Drugs: None Review of Systems - Review of Systems General: Denies: Fever, Night Sweats, Fatigue Cardiovascular: Reports: Shortness of Breath, Shortness of Breath at Rest, Shortness of Breath with Exertion, Peripheral Edema. Denies: Chest Discomfort, Orthopnea, PND, Palpitations, Lightheadedness, Dizziness, Near Syncope, Syncope Respiratory: Reports: Shortness of Breath. Denies: Cough, Sputum Production, Hemoptysis Gastrointestinal: Denies: Hematemesis, Hematochezia, Melena Genitourinary: Denies: Dysuria, Hematuria Skin: Denies: Rash Subjectve: This is a 74-year-old white female who appears to be breathing with pursed lip breathing while wearing her O2 nasal cannula. Objective: Vital Signs Temp Pulse Resp BP Pulse Ox 98.0 F 97 20 H 169/85 H 94 12/07/19 09:35 12/07/19 09:35 12/07/19 09:35 12/07/19 09:35 12/07/19 09:35 Oxygen Flow Rate (L/min) 4 Oxygen Delivery Method Nasal Cannula Weight: 203 lb Body Mass Index (BMI) 33.7 General: Awake, Alert, Oriented x 3, Cooperative, Ill Appearing HEENT: Atraumatic, Normocephalic, PERRL, EOMI, Sclera Non Icteric Neck: Supple, Good ROM, No JVD Lungs: Rales - Erik Bases Cardiovascular: Regular Rhythm, Premature Ectopic Beats, Normal S1, Normal S2 Vascular: No Carotid Bruits Abdomen: Bowel Sounds Present, Soft, Non Tender Extremities: Mild RLE Edema, Mild LLE Edema Neurological: No Focal Motor or Sensory Deficit Psych/Mental Status: Appropriate 12/07/19 05:26: WBC 7.2, RBC 3.58 L, Hgb 11.2 L, Hct 33.8 L, MCV 94.4, MCH 31.3, MCHC 33.1, Plt Count 226, MPV 10.0, Immature Gran % (Auto) 0.400, Neut % (Auto) 71.5 H, Lymph % (Auto) 15.9 L, [place] % (Auto) 8.4, Eos % (Auto) 3.4, Baso % (Auto) 0.4, Absolute Neuts (auto) 5.1, Nucleated RBC % 0 12/07/19 05:26: Sodium 138, Potassium 3.6, Chloride 102, Carbon Dioxide 30.0, Anion Gap 6, BUN 24 H, Creatinine 1.13 H, Est GFR (MDRD) Af Amer 60, Est GFR (MDRD) Non-Af 50 L, BUN/Creatinine Ratio 21.2 H, Glucose 113 H, Calcium 9.2, Troponin I 1.500 H* 12/07/19 05:26: B-Natriuretic Peptide 1179.9 H 12/07/19 05:26: APTT 28.9 12/07/19 05:26: PT 13.0, INR 1.0 12/07/19 09:00: Total Bilirubin 0.80, Direct Bilirubin 0.28, Troponin I 1.190 H* 12/07/19 09:00: Triglycerides 61, Cholesterol 164, LDL Cholesterol 82, VLDL Cholesterol 12, HDL Cholesterol 70 Rhythm: Sinus rhythm; PVCs EKG: As noted above ECHO: 10-07-2013 Interpretation Summary Normal LV size. Left ventricular systolic function is normal. The estimated ejection fraction is 55 %. Mild (1+) tricuspid valve insufficiency. Pulmonary artery systolic pressure is 30 mmHg. CXR: As noted above COVID-19: Reported as nonreactive Assessment/Plan 1. Non-ST segment elevation [place] The patient presents with findings compatible with a non-ST segment elevation [place]. It is unclear at this time whether this is related to a primary acute coronary syndrome event type I event versus a type II supply demand mismatch event brought out by her underlying pulmonary condition/hypoxemia. At the moment she is being followed with cardiac enzymes and telemetry monitoring and ECG. An echocardiogram has been requested to evaluate her left ventricular size, wall motion, and systolic function. She will continue medical therapy which has already included aspirin, antiplatelet therapy, anticoagulants, as well as other agents as required and tolerated such as nitrates, beta-blockers, antihypertensive agents, lipid- lowering agents, etc. Ideally she would be considered for further evaluation with diagnostic cardiac catheterization to further evaluate her coronary anatomy for the need for not only medical therapy but possible revascularization therapy. However at the present time based upon her underlying pulmonary condition she cannot lie supine to undergo such a procedure. 2. CHF: Acute: Unspecified At the present time the patient does have findings compatible with acute CHF. It is unclear whether this is systolic or diastolic mediated. She does need to continue medical therapy. This will include medications such as her diuretics and other medications as deemed appropriate. She will undergo an echocardiogram to assess her left ventricular wall motion systolic function, etc. Eventually when she is able to lie supine comfortably and she can be considered for further evaluation with diagnostic cardiac catheterization. 3. Cardiac dysrhythmia She had a recent Holter monitor demonstrating both atrial and ventricular dysrhythmias. It is unclear whether this is related to her underlying pulmonary disease including obstructive sleep apnea versus related to underlying previously undiagnosed cardiovascular disease. At the moment she will continue to be monitored. Her rhythm can be addressed as needed. 4. Hyperlipidemia She will continue lipid-lowering therapy. 5. Hypertension She states her blood pressure elevations have been recent. She will need medical therapy and attempt to bring her blood pressure under better control. 6. COPD She is reported as having severe COPD. Her chest x-ray does not suggest findings compatible with underlying chronic pulmonary disease. She has been followed by pulmonology. Their input may be required during her hospitalization to assist in her evaluation and care. 7. Obstructive sleep apnea She will continue evaluation care per her primary care physician and pulmonology. 8. Hypoxemia She apparently has had chronic hypoxemia. She is on chronic supplemental nasal cannula O2 at home. It is presumed this is related to her deteriorating pulmonary disease process. This may be exacerbated by an underlying acute cardiovascular related issues such as CHF/pulmonary edema. She will continue evaluation care as above. Comment: The patient's case has been discussed with the patient as well as previously with the [facility] emergency department staff. This note was generated using a voice recognition system and there may be incorrect words, spelling or punctuation that were not noted when reviewing the office note prior to saving.
--- NOTE | 2019-12-07 11:35 | CASEMGMT ---
RN CM Face to Face with patient for initial transition planning/care coordination assessment. RN CM introduced self and role at [facility]. Patient lying in bed, alert and oriented. Patient willing to participate in assessment and is able to answer all questions appropriately. Care providers, pharmacy, and demographics verified. Patient wishes to discharge home, denies need for home health at this time. Patient states she has no further needs or concerns at this time. CM to follow for discharge planning needs that may arise. PCP: Tori Specialists: [facility] Preferred Pharmacy: [facility] Insurance: [employer] [facility] Prescription Benefit: yes Living Will/HPOA: yes, daughter Henna Mcfarlane LNOK: daughter Living Arrangements: Patient lives alone in a 1 story home with 6 step and railing to enter the home. Patient states she is independent Transportation: self/daughter DME/HHC: Patient states she has raised toilet seat, grab bar, oxygen 4lpm at home with portability through [facility]. Patient denies previous HHC Disposition Plan: Patient to discharge home with family support and follow-up plans in place. Kisha RAMIREZ, RN, CM
[2019-12-07] MEDS: Montelukast 10 MG Tablet PO (12:07)
[2019-12-07] MEDS: Carvedilol 6.25 MG Tablet PO ×2 (12:07→21:11)
[2019-12-07 13:06] LABS: SARSInt. QC ok MP
[2019-12-07] MEDS: Furosemide 40 MG/4 ML Vial IV ×2 (13:58→18:53)
[2019-12-07 14:13] LABS: Partial Thromboplast Time 248.6 Seconds (24.1-36.2)
[2019-12-07] MEDS: 0.9% Saline Lock 10 ML Syringe IV (18:54)
--- NOTE | 2019-12-07 20:18 | NURSING ---
heparin gtt was running at 1100 units/hr at 1900. unclear when the heparin gtt was restarted by alvarez BARNETT.
[2019-12-07 20:50] LABS: Partial Thromboplast Time 89.6 Seconds (24.1-36.2)
[2019-12-07] MEDS: Lisinopril 10 MG Tablet PO (21:10)
[2019-12-07] MEDS: Atorvastatin Calcium 40 MG Tablet PO (21:11)
[2019-12-08] VITALS (16 sets, daily range): BP systolic 80–128; BP diastolic 41–60; PULSE 54–78; RESP 16–18; TEMP 36.5–36.7; O2SAT 92–98
[2019-12-08] MEDS: Acetaminophen 325 MG Tablet 650 MG PO ×2 (00:16→14:22)
[2019-12-08 04:36] LABS: Absolute Lymphocyte Count 0.86 X10^3/uL (0.83-4.51); Absolute Neutrophil Count 5.4 X10^3/uL (2.0-7.7); Basophil# 0.04 X10^3/uL; Basophil% 0.6 % (0-1); Eosinophil# 0.22 X10^3/uL; Eosinophils% 3.1 % (0-5); Lymphocyte # 0.86 X10^3/ul (4.0); Lymphocyte % 12.2 % (19-41); Mean Corp Hgb Conc 33.3 g/dL (32-36); Mean Corpuscular Hgb 30.9 pg (27.0-32.0); Mean Corpuscular Volume 92.7 fL (81-99); Mean Platelet Vol. 9.9 fl (6.2-12.0); Monocyte% 7.1 % (0-10); NRBC Flagged by Analyzer 0 % (0-5); Neutrophil # 5.41 X10^3/uL (2.7-7.7); Neutrophil % 76.6 % (47-70); Platelet Count 247 K/mm3 (150-450); RBC Distribution Width CV 13.2 % (11.6-14.6); RBC Distribution Width SD 44.3 fl (35.1-43.9); Red Blood Count 3.56 M/mm3 (4.2-5.4); White Blood Count 7.1 K/mm3 (4.4-11.0)
[2019-12-08 04:43] LABS: Partial Thromboplast Time 90.5 Seconds (24.1-36.2)
[2019-12-08 05:11] LABS: Anion Gap 5 (5-15); BUN 32 mg/dL (7-18); BUN/Creat Ratio 18.7 RATIO (10-20); Calcium,Total 9.4 mg/dL (8.5-10.1); Chloride 101 mmol/L (98-107); Creatinine, Serum 1.71 mg/dL (0.55-1.02); EST Glomerular Filtration Rate 31 mL/min (>60); Est Glom Filt Rate - Afr Amer 37 mL/min (>60); Estimated Creatinine Clearance 25.58 ml/min; Glucose 109 mg/dL (74-106); Potassium 3.6 mmol/L (3.5-5.1); Sodium Level 139 mmol/L (136-145)
--- NOTE | 2019-12-08 05:55 | EKG12_ITS ---
Test Reason : AM EKG Blood Pressure : / mmHG Vent. Rate : 055 BPM Atrial Rate : 055 BPM P-R Int : 120 ms QRS Dur : 126 ms QT Int : 520 ms P-R-T Axes : 079 032 124 degrees QTc Int : 497 ms Sinus bradycardia Non-specific intra-ventricular conduction block T wave abnormality, consider lateral ischemia Abnormal ECG Confirmed by JENNIFER MOBLEY, AWA ([id number]), index editor AIDAN SHIELDS ([id number]) on 12/10/2019 10:49:31 AM Referred By: ALEJO Confirmed By:AWA RODRIGUEZ MD
[2019-12-08] MEDS: Ipratropium/Albuterol Sulfate 3 ML AMPUL.NEB INHALATION ×2 (07:30→19:42)
--- NOTE | 2019-12-08 08:04 | PCM.PROGNOTE ---
Patient Problems: Active and Suspected Problems (Last Updated 12/07/19 @ 09:[address] Saad Singh MD) Cardiac dysrhythmia (Acute) Non-ST elevation myocardial infarction (NSTEMI) (Acute) CHF (congestive heart failure) (Acute) Subjective: Chief complaint: Follow-up after admission for acute non-STEMI and acute systolic CHF as well as acute COPD exacerbation. She developed acute kidney injury after admission. Patient seen and examined. No acute events overnight. She reported improvement of shortness of breath, was able to lay flat last night but she could not sleep because of leg cramps. Denied chest pain. Denied cough or sputum production. She is feeling better all over. She has been afebrile, blood pressure and heart rate are stable, pulse ox is 98% on 4 L which is her baseline at home. - Physical Exam Vitals/I&O's: Vital Signs Temp Pulse Resp BP Pulse Ox 97.7 F L 60 18 108/51 L 98 12/08/19 04:26 12/08/19 07:31 12/08/19 07:31 12/08/19 04:26 12/08/19 07:31 Oxygen Flow Rate (L/min) 4 Oxygen Delivery Method Nasal Cannula Weight: 203 lb Body Mass Index (BMI) 33.7 Intake and Output for Last 24 Hours 12/06/19 12/07/19 12/08/19 23:59 23:59 23:59 Intake Total 662.38 / 662.38 147.5 / 147.5 Output Total 1200 / 1200 450 / 450 Balance -537.62 / -537.62 -302.5 / -302.5 General: Alert, Oriented x3, Cooperative HEENT: Atraumatic, PERRLA, EOMI, Normocephalic Oral: Moist Mucosa, No Gingival or Mucosal Lesions/ Ulcerations Neck: Supple, No JVD, Negative Carotid Bruits, Trachea Midline, Thyroid Normal Size and Texture Lungs: No rhonchi, No wheeze, Diminished, Rales, - - Decreased breath sounds bilateral, bilateral basilar faint crackles. Cardiovascular: Regular rate, Regular Rhythm, Normal S1, Normal S2, PMI Normal Abdomen: Bowel Sounds Present, Soft, Non Tender, Non-Distended, No Hepato-splenomegaly Extremities: No clubbing, No cyanosis, Edema Skin: No rashes, No breakdown Lymphatic: No Cervical, Supraclavicular, or Inguinal Adenopathy Neurological: Cranial nerves II-XII grossly intact, Neuro grossly intact Psych/Mental Status: Normal Affect, Appropriate, Alert and oriented to time, place, person, mood and affect Laboratory Results 12/07/19 05:26: PT 13.0, INR 1.0 12/07/19 07:35: COVID-19 (SARIKA) Negative 12/07/19 09:00: Total Bilirubin 0.80, Direct Bilirubin 0.28, AST 23, ALT 22, Alkaline Phosphatase 67, Troponin I 1.190 H*, Total Protein 7.4, Albumin 3.6, Globulin 3.8, TSH 0.68 12/07/19 09:00: Triglycerides 61, Cholesterol 164, LDL Cholesterol 82, VLDL Cholesterol 12, HDL Cholesterol 70 12/07/19 12:15: Troponin I 1.040 H* 12/07/19 13:18: APTT 248.6 H* 12/07/19 20:26: APTT 89.6 H 12/08/19 04:20: WBC 7.1, RBC 3.56 L, Hgb 11.0 L, Hct 33.0 L, MCV 92.7, MCH 30.9, MCHC 33.3, RDW Std Deviation 44.3 H, RDW Coeff of Meredith 13.2, Plt Count 247, MPV 9.9, Immature Gran % (Auto) 0.400, Neut % (Auto) 76.6 H, Lymph % (Auto) 12.2 L, [place] % (Auto) 7.1, Eos % (Auto) 3.1, Baso % (Auto) 0.6, Absolute Neuts (auto) 5.4, Absolute Lymphs (auto) 0.86, Nucleated RBC % 0 12/08/19 04:20: Sodium 139, Potassium 3.6, Chloride 101, Carbon Dioxide 33.0 H, Anion Gap 5, BUN 32 H, Creatinine 1.71 H, Estim Creat Clear Calc 25.58, Est GFR (MDRD) Af Amer 37 L, Est GFR (MDRD) Non-Af 31 L, BUN/Creatinine Ratio 18.7, Glucose 109 H, Calcium 9.4 12/08/19 04:20: APTT 90.5 H* Current Medications Acetaminophen (Tylenol) 650 mg PO Q6H PRN PRN PRN Reason: Pain Score 1-10/Temp > 100.7 F Last Admin: 12/08/19 00:16 Dose: 650 mg Documented by: Albuterol Sulfate (Ventolin Aerosols) 2.5 mg INHALATION Q4H PRN PRN PRN Reason: Shortness of breath, wheezing Albuterol/Ipratropium (Duoneb) 3 ml INHALATION Q6H.RT [facility] Last Admin: 12/08/19 07:30 Dose: 3 ml Documented by: Aspirin (Ecotrin) 81 mg PO DAILY@0800 [facility] Atorvastatin Calcium (Lipitor) 40 mg PO QHS [facility] Last Admin: 12/07/19 21:11 Dose: 40 mg Documented by: Carvedilol (Coreg) 6.25 mg PO BID [facility] Last Admin: 12/07/19 21:11 Dose: 6.25 mg Documented by: Furosemide (Lasix) 20 mg IV BID@1000,1800 [facility] Heparin Sodium/Sodium Chloride () 25,000 unit in 250 mls @ 14 mls/hr IV .[id number] [facility]; Protocol Last Titration: 12/08/19 05:45 Dose: 900 units/hr, 9 mls/hr Documented by: Lisinopril (Zestril) 10 mg PO BID [facility] Last Admin: 12/07/19 21:10 Dose: 10 mg Documented by: Menthol (Bengay Vanishing Scent) 1 applic TOPICAL TID PRN PRN PRN Reason: LEG CRAMPS Last Admin: 12/08/19 04:31 Dose: 1 applic Documented by: Montelukast Sodium (Singulair) 10 mg PO DAILY [facility] Last Admin: 12/07/19 12:07 Dose: 10 mg Documented by: Ondansetron HCl (Zofran) 4 mg IV Q8H PRN PRN PRN Reason: NAUSEA/VOMITING Senna/Docusate Sodium (Senokot-S, Sera-Colace) 2 tablet PO BID PRN PRN PRN Reason: Constipation Sodium Chloride () 10 - 40 ml IV UD PRN PRN Reason: SALINE FLUSH Last Admin: 12/07/19 18:54 Dose: 10 ml Documented by: Zolpidem Tartrate (Ambien (Generic)) 5 mg PO QHS PRN PRN PRN Reason: INSOMNIA Medical Necessity - Tobacco Use Smoking Status: Former smoker Assessment/Plan All Active Problems (Last Updated 12/07/19 @ 09:[address] Saad Singh MD) Cardiac dysrhythmia (Acute) Non-ST elevation myocardial infarction (NSTEMI) (Acute) CHF (congestive heart failure) (Acute) This is a 74 years old female patient presented to the emergency room because of worsening shortness of breath and she was found to have acute non-ST elevation ND, acute CHF and acute COPD exacerbation. #1 acute non-ST elevation ND: EKG reviewed, no acute ischemic changes. Troponin is trending down. Patient remained chest pain-free, shortness of breath improved. Her vital signs are stable. She is on aspirin, statins, Coreg, lisinopril and IV heparin drip. 2D echocardiogram revealed ejection fraction of 35%, moderate global LV systolic dysfunction, RVSP of 67. Cardiology on the case. Patient will probably need to go for cardiac catheterization. Plan to continue same treatment. #2 acute systolic CHF: She is on IV Lasix, on Coreg and lisinopril. 2D echocardiogram revealed ejection fraction of 35% as above. Patient reported improvement of her shortness of breath, she is down to 4 L of oxygen which is her baseline at home. Creatinine today went up to 1.71 mg/dL, which was 1.13 yesterday. This is because of IV Lasix. Plan to decrease IV Lasix to 20 mg IV twice daily, repeat BMP tomorrow morning. #3 acute kidney injury: Admission creatinine was 1.13 BUN was 24. Today, BUN is 32 and creatinine is 1.71. This is because of IV Lasix. Patient received total of 3 doses of IV Lasix yesterday. Plan: Decrease IV Lasix to 20 mg IV twice daily, repeat BMP tomorrow morning. #4 acute COPD exacerbation: She is on DuoNeb, Pulmicort twice daily and albuterol PRN. Chest x-ray reviewed. COVID-19 PCR came back negative. Shortness of breath has been improving, she is down to 4 L and this is her baseline at home. #5 COPD/chronic respiratory failure: On home oxygen at 4 L. Chest x-ray reviewed as above. Plan as above. #6 hyperlipidemia: Continue statins, lipid profile reviewed. #7 suspected obstructive sleep apnea: Patient had recent sleep study as outpatient, no documents available in her chart. Recommend follow-up with pulmonology as outpatient. #8 CODE STATUS: Full code, discussed with the patient and her daughter. #9 DVT prophylaxis: Continue on IV heparin drip. This note was generated with [employer] software. It may contain incorrect words, spelling, and punctuation that were not noted in checking the note before signing. Inpatient E&M: 36156 Subs Hosp L2
[2019-12-08] MEDS: Aspirin E.C. 81 MG Tablet PO (08:53)
[2019-12-08] MEDS: Montelukast 10 MG Tablet PO (08:53)
[2019-12-08] MEDS: Lisinopril 10 MG Tablet PO (09:06)
--- NOTE | 2019-12-08 10:55 | PN.CARD_ITS ---
Subjectve: The patient states that she is breathing better. She states she was able to sleep in her bed for a period of time last night and then she slept in the chair. Objective: Vital Signs Temp Pulse Resp BP Pulse Ox 97.8 F 60 16 88/42 L 96 12/08/19 08:36 12/08/19 08:36 12/08/19 08:36 12/08/19 10:19 12/08/19 08:36 Oxygen Flow Rate (L/min) 4 Oxygen Delivery Method Nasal Cannula Weight: 203 lb Body Mass Index (BMI) 33.7 Intake and Output for Last 24 Hours 12/06/19 12/07/19 12/08/19 23:59 23:59 23:59 Intake Total 662.38 / 662.38 207.62 / 207.62 Output Total 1200 / 1200 450 / 450 Balance -537.62 / -537.62 -242.38 / -242.38 General: Awake, Alert, Oriented x 3, Cooperative, Ill Appearing HEENT: Atraumatic, Normocephalic, PERRL, EOMI Neck: Supple, Good ROM, No JVD Lungs: Rales - Erik Bases Cardiovascular: Regular Rhythm, Premature Ectopic Beats, Normal S1, Normal S2 Abdomen: Bowel Sounds Present, Soft Extremities: Mild RLE Edema, Mild LLE Edema Psych/Mental Status: Appropriate 12/07/19 12:15: Troponin I 1.040 H* 12/07/19 13:18: APTT 248.6 H* 12/07/19 20:26: APTT 89.6 H 12/08/19 04:20: WBC 7.1, RBC 3.56 L, Hgb 11.0 L, Hct 33.0 L, MCV 92.7, MCH 30.9, MCHC 33.3, Plt Count 247, MPV 9.9, Immature Gran % (Auto) 0.400, Neut % (Auto) 76.6 H, Lymph % (Auto) 12.2 L, [place] % (Auto) 7.1, Eos % (Auto) 3.1, Baso % (Au to) 0.6, Absolute Neuts (auto) 5.4, Nucleated RBC % 0 12/08/19 04:20: Sodium 139, Potassium 3.6, Chloride 101, Carbon Dioxide 33.0 H, Anion Gap 5, BUN 32 H, Creatinine 1.71 H, Est GFR (MDRD) Af Amer 37 L, Est GFR (MDRD) Non-Af 31 L, BUN/Creatinine Ratio 18.7, Glucose 109 H, Calcium 9.4 12/08/19 04:20: APTT 90.5 H* Rhythm: Sinus rhythm; PVCs; brief episode appearing compatible with either ectopic atrial tachycardia/multifocal atrial tachycardia versus PAF; 4 beat nonsustained irregular wide-complex rhythm EKG: Sinus rhythm; nonspecific ST/T wave abnormality: Consider myocardial isch emia-lateral ECHO: Interpretation Summary The study was technically difficult. Mildly dilated left ventricle. Moderate global left ventricular systolic dysfunction. The estimated ejection fraction is 35 %. Mild concentric left ventricular hypertrophy. The left atrium is moderately enlarged. Mild diffuse mitral valve thickening. Mild papillary muscle dysfunction of the mitral valve. Moderately severe (3+) mitral valve insufficiency. Mild tricuspid valve insufficiency. Trivial eccentric pulmonic valve insufficiency. Right ventricular systolic pressure estimated to be 67 mmHg. Transmitral diastolic flow velocities suggest diastolic dysfunction (pseudonormal pattern). Medical Necessity - Tobacco Use Smoking Status: Former smoker Assessment/Plan 1. Non-ST segment elevation AK The patient presents with findings compatible with a non-ST segment elevation M I. It is unclear at this time whether this is related to a primary acute coronary syndrome event type I event versus a type II supply demand mismatch event brought out by her underlying pulmonary condition/hypoxemia. At the moment she is being followed with cardiac enzymes and telemetry monitoring and ECG. Her cardiac enzymes have declined. Her ECG changes are as noted. She had a transthoracic echocardiogram performed. The results are as noted. She will continue medical therapy which has already included aspirin, antiplatelet therapy, anticoagulants, as well as other agents as required and tolerated such as nitrates, beta-blockers, antihypertensive agents, lipid- lowering agents, etc. Ideally she would be considered for further evaluation with diagnostic cardiac catheterization to further evaluate her coronary anatomy for the need for not only medical therapy but possible revascularization therapy. This will occur when she is able to lie supine comfortably and her creatinine levels are acceptable. 2. CHF: Acute: Unspecified At the present time the patient does have findings compatible with acute CHF. It is unclear whether this is systolic or diastolic mediated. She does need to continue medical therapy. This will include medications such as her diuretics and other medications as deemed appropriate. Again, her echocardiogram has been performed. The results are as noted. Eventually when she is able to lie supine comfortably and she can be considered for further evaluation with diagnostic cardiac catheterization. 3. Cardiac dysrhythmia She had a recent Holter monitor demonstrating both atrial and ventricular dysrhythmias. It is unclear whether this is related to her underlying pulmonary disease including obstructive sleep apnea versus related to underlying previously undiagnosed cardiovascular disease. At the moment she will continue to be monitored. Her rhythm can be addressed as needed. The moment this does include medical management as best as possible. 4. Hyperlipidemia She will continue lipid-lowering therapy. 5. Hypertension She states her blood pressure elevations have been recent. She will need medical therapy and attempt to bring her blood pressure under better control. 6. COPD She is reported as having severe COPD. Her chest x-ray does not suggest findings compatible with underlying chronic pulmonary disease. She has been followed by pulmonology. Their input may be required during her hospitalization to assist in her evaluation and care. 7. Obstructive sleep apnea She will continue evaluation care per her primary care physician and pulmonology. 8. Hypoxemia She apparently has had chronic hypoxemia. She is on chronic supplemental nasal cannula O2 at home. It is presumed this is related to her deteriorating pulmonary disease process. This may be exacerbated by an underlying acute cardiovascular related issues such as CHF/pulmonary edema. She will continue evaluation care as above. Comment: The patient's case has been discussed with the patient and Dr. Singh. This note was generated using a voice recognition system and there may be incorrect words, spelling or punctuation that were not noted when reviewing the office note prior to saving.
[2019-12-08 12:21] LABS: Partial Thromboplast Time 86.1 Seconds (24.1-36.2)
[2019-12-08] MEDS: Clopidogrel Bisulfate 300 MG Tablet PO (12:24)
[2019-12-08] MEDS: Furosemide 20 MG/2 ML VIAL IV (17:50)
[2019-12-08] MEDS: 0.9% Saline Lock 10 ML Syringe IV (17:50)
[2019-12-08 19:38] LABS: Partial Thromboplast Time 62.1 Seconds (24.1-36.2)
[2019-12-08] MEDS: Carvedilol 6.25 MG Tablet PO (21:11)
[2019-12-08] MEDS: Atorvastatin Calcium 40 MG Tablet PO (21:11)
[2019-12-08] MEDS: Lisinopril 5 MG Tablet PO (21:11)
[2019-12-09] VITALS (15 sets, daily range): BP systolic 97–129; BP diastolic 45–60; PULSE 55–76; RESP 16–20; TEMP 36.2–36.7; O2SAT 94–98
[2019-12-09 01:04] LABS: Partial Thromboplast Time 68.5 Seconds (24.1-36.2)
--- NOTE | 2019-12-09 05:55 | EKG12_ITS ---
Test Reason : AM EKG Blood Pressure : / mmHG Vent. Rate : 062 BPM Atrial Rate : 062 BPM P-R Int : 122 ms QRS Dur : 122 ms QT Int : 458 ms P-R-T Axes : 091 027 123 degrees QTc Int : 464 ms Normal sinus rhythm Nonspecific ST and T wave abnormality Abnormal ECG When compared with ECG of 08-DEC-2019 05:32, MANUAL COMPARISON REQUIRED, DATA IS UNCONFIRMED Confirmed by JENNIFER MOBLEY, AWA ([id number]), legal editor AIDAN SHIELDS ([id number]) on 12/10/2019 10:49:12 AM Referred By: ALEJO Confirmed By:AWA RODRIGUEZ MD
[2019-12-09] MEDS: 0.9% Normal Saline 1,000 ML 15 ML IV (05:58)
[2019-12-09] MEDS: Clopidogrel Bisulfate 75 MG Tablet PO (05:59)
[2019-12-09] MEDS: Aspirin E.C. 81 MG Tablet PO (05:59)
[2019-12-09] MEDS: Lisinopril 5 MG Tablet PO (05:59)
[2019-12-09] MEDS: Carvedilol 6.25 MG Tablet PO (05:59)
[2019-12-09 06:44] LABS: Anion Gap 8 (5-15); BUN 41 mg/dL (7-18); BUN/Creat Ratio 21.7 RATIO (10-20); Calcium,Total 9.5 mg/dL (8.5-10.1); Chloride 99 mmol/L (98-107); Creatinine, Serum 1.89 mg/dL (0.55-1.02); EST Glomerular Filtration Rate 28 mL/min (>60); Est Glom Filt Rate - Afr Amer 33 mL/min (>60); Estimated Creatinine Clearance 23.14 ml/min; Glucose 103 mg/dL (74-106); Potassium 3.5 mmol/L (3.5-5.1); Sodium Level 137 mmol/L (136-145)
[2019-12-09] MEDS: Ipratropium/Albuterol Sulfate 3 ML AMPUL.NEB INHALATION (06:50)
[2019-12-09 07:46] LABS: Base Excess 7 mmol/L (-2 to +2); Bicarbonate 31.2 mmol/L (22-26); Blood Gas Specimen Type ART; PO2 84 mmHG (75-100); SO2 96 % (95-99); Total Carbon Dioxide 33 mmol/L; pCO2 48.5 mmHg (35-45); pH 7.42 (7.35-7.45)
[2019-12-09 07:55] LABS: Blood Gas Specimen Type VEN; VBG BASE EXCESS 5 mmol/L (-1.0-3.5); VBG Bicarbonate 30 mmol/L (22-26); VBG Oxygen Content 32 mmol/L (23-33); VBG PO2 45 mmHg (25-40); VBG SO2 79 % (50-70); VBG pH 7.38 (7.32-7.42)
[2019-12-09 08:00] LABS: Blood Gas Specimen Type VEN; VBG BASE EXCESS 6 mmol/L (-1.0-3.5); VBG Bicarbonate 31 mmol/L (22-26); VBG Oxygen Content 33 mmol/L (23-33); VBG PO2 37 mmHg (25-40); VBG SO2 67 % (50-70); VBG pCO2 55.8 mmHg (41-51); VBG pH 7.36 (7.32-7.42)
[2019-12-09 08:05] LABS: Blood Gas Specimen Type VEN; VBG BASE EXCESS 7 mmol/L (-1.0-3.5); VBG Bicarbonate 31 mmol/L (22-26); VBG Oxygen Content 33 mmol/L (23-33); VBG PO2 38 mmHg (25-40); VBG SO2 71 % (50-70); VBG pH 7.39 (7.32-7.42)
--- NOTE | 2019-12-09 08:52 | CL.D_ITS ---
Patient Name: DIOGO BARRAGAN Study Date: 12/09/2019 Performing: Loi Jenkins MD Ht: 65 inches 165 cm : 1945 Wt: 200.9 lbs 91 kg Age: 74 Gender: female BSA: 1.98 PROCEDURE(S) PERFORMED FY92-NMS/LHC/COR/LV CLINICAL PROFILE AND INDICATIONS Indications: Suspected CAD, Valvular Disease, LV Dysfunction Heart Failure: NYHA Class: 3, Newly Diagnosed: Yes, Heart Failure Type: Systolic Stress/Imaging Stress/Image Study Performed: No Angina Classification Anginal Classification w/in 2 Weeks: Anginal Equivalent Dyspnea CAD Presentations: Non-STEMI. CONCLUSIONS Right heart pressures - mildly elevated The patient has pulmonary hypertension which is mild. Intracardiac shunting: None Normal Left Ventricular End Diastolic Pressure Segmented LV systolic dysfunction- Moderate - Severe LVEF: by LV gram 30 % [place] Multivessel CAD Mitral Valve Insufficiency Moderately - Severe RECOMMENDATIONS Risk factor modification Medical therapy Surgery consult for coronary revascularization Surgery consult for valvular disease DESCRIPTION OF PROCEDURE The patient arrived to the procedure lab. The risks and benefits of the procedure as well as a full d escription of our services here and current unavailability of surgical backup were fully explained to the patient and/or their significant other prior to the catheterization. The Timeout was completed, verifying the correct patient and procedure. The patient's procedural site was prepped and draped in the usual fashion. Local anesthetic was given subcutaneously to right groin region with Lidocaine 2%. Using a modified Seldinger technique, arterial access was obtained via the right femoral artery, a 4 Fr sheath was inserted Venous access was obtained via the right femoral vein, a 7Fr sheath was insert ed. Thermal dilution cardiac outputs were then recorded. O2 saturations were then obtained. The Therm al dilution catheter was then removed. Left Ventriculography was performed in LION projection using a 4 Fr. Pigtail catheter. LV to AO pullback pressures were then recorded. Left Coronary Artery selective angiography was performed in multiple views using a 4 Fr. JL5 catheter. Right Oconnor ry Artery selective angiography was then performed in multiple views using a 4 Fr. 3DRC catheter.The arterial sheath was pulled and manual compression applied until hemostasis is achieved.. The venous s magda was then pulled and manual compression applied until hemostasis achieved CORONARY ANGIOGRAPHY DOMINANCE: Right Dominant LEFT HEART ASSESSMENT Left Ventricular Ejection Fraction: by LV Gram 30 % Anterior Hypokinesis. Inferior Basal Akinesis. Inferior Mid Hypokinesis - Severe. Apical Hypokinesis Normal Left Ventricular End Diastolic Pressure LVEDP: 11 mmHg RIGHT HEART ASSESSMENT Thermal CO: 4.77 Thermal CI: 2.41 Talia CO: 10.35 Talia CI: 5.23 PW: 18/18 15 PA: 39/17 24 RV: 37/0 9 RA: 8/7 5 PVR: 151 SVR: 1241 Right Heart pressures - elevated Pulmonary Hypertension Mild Intracardiac shunting: None LEFT MAIN: Moderate calcification, eccentric: 25 % Stenosis LEFT ANTERIOR DESCENDING ARTERY: Mild luminal irregularities PROX LAD: Moderate calcification DIAGONAL 1: Proximal - 50 - 75 % Stenosis (small caliber vessel) CIRCUMFLEX ARTERY: PROX CIRC: 75 % Stenosis RAMUS: proximal: 75 % Stenosis RIGHT CORONARY ARTERY: PROX RCA: Mild calcification, 50 % Stenosis MID RCA: Mild calcification, eccentric: hazy: 85 % Stenosis DISTAL RCA: Mild luminal irregularities VALVE FINDINGS: Mitral Valve Insufficiency - Grade 3 AORTIC ROOT: Angiographically normal COMPLICATIONS No Complications PROCEDURE MEDICATIONS Versed 1 mg IV Oxygen: 4 L/min via nasal cannula SUMMARY OF HEMODYNAMIC DATA Time AIR REST ECG 07:25:21 RA 8 (5) SV 07:42:51 RV 37/0, 9 07:43:06 PW 1818 (15) PV 07:43:34 PA 39/17 (24) PA 07:43:51 LV 122/0, 14 07:52:39 PW 22/24 (18) 07:52:39 LV 137/0, 11 07:52:54 PW 45/35 (26) 07:52:54 LV 125/0, 12 07:54:01 PW 19/20 (16) 07:54:01 PA 43/17 (27) 07:54:22 AO 94/65 (79) SA 07:56:27 PA 51/20 (33) 08:03:33 RV 49/7, 11 08:03:46 RA 11 (8) 08:04:01 Type SV CO (l/m) CI (l/m/ HR Time AIR REST Thermal 70.10 4.77 2.41 68 07:25:21 Talia 152.20 10.35 5.23 68 07:25:21 Label % O2 Pres/Loc Time AIR REST AO 96 PV 08:05:16 SVC 67 08:05:29 IVC 79 SV 08:05:38 PA 71 PA 08:05:45 Signed By Loi Jenkins MD On 12/09/2019 08:51:40 Loi Jenkins MD
--- NOTE | 2019-12-09 08:52 | PCM.PN.CARD ---
Subjectve: The patient is now status post diagnostic cardiac catheterization. She appeared to rest comfortably in the supine position with her O2 nasal cannula on during her procedure. She noted that overall her breathing has is improved since her hospitalization. Objective: Vital Signs Temp Pulse Resp BP Pulse Ox 97.9 F 58 L 20 H 111/60 96 12/09/19 05:56 12/09/19 07:10 12/09/19 06:50 12/09/19 05:56 12/09/19 06:50 Oxygen Flow Rate (L/min) 4 Oxygen Delivery Method Nasal Cannula Weight: 200 lb 9.93 oz Body Mass Index (BMI) 33.7 Intake and Output for Last 24 Hours 12/07/19 12/08/19 12/09/19 23:59 23:59 23:59 Intake Total 662.38 / 662.38 1000.25 / 1000.25 16.67 / 16.67 Output Total 1200 / 1200 1300 / 1300 300 / 300 Balance -537.62 / -537.62 -299.75 / -299.75 -283.33 / -283.33 General: Awake, Alert, Oriented x 3, Cooperative, Ill Appearing HEENT: Atraumatic, Normocephalic, PERRL, EOMI, Sclera Non Icteric Neck: Supple, Good ROM, No JVD Lungs: Rales - Erik Bases Cardiovascular: Regular Rhythm, Premature Ectopic Beats, Normal S1, Normal S2 Abdomen: Bowel Sounds Present, Soft Extremities: Mild RLE Edema, Mild LLE Edema Neurological: No Focal Motor or Sensory Deficit Psych/Mental Status: Appropriate 12/08/19 12:00: APTT 86.1 H 12/08/19 18:41: APTT 62.1 H 12/09/19 00:45: APTT 68.5 H 12/09/19 05:46: Sodium 137, Potassium 3.5, Chloride 99, Carbon Dioxide 30.0, Anion Gap 8, BUN 41 H, Creatinine 1.89 H, Est GFR (MDRD) Af Amer 33 L, Est GFR (MDRD) Non-Af 28 L, BUN/Creatinine Ratio 21.7 H, Glucose 103, Calcium 9.5 12/09/19 07:42: pH 7.42, Bicarbonate Actual 31.2 H, Base Excess 7 H, O2 Saturation 96, ABG pCO2 48.5 H, ABG pO2 84 12/09/19 07:49: VBG pH 7.38, VBG pO2 45 H, VBG HCO3 30 H, VBG O2 Sat (Calc) 79 H, VBG O2 Content 32, VBG Base Excess 5 H 12/09/19 07:54: VBG pH 7.36, VBG pO2 37, VBG HCO3 31 H, VBG O2 Sat (Calc) 67, VBG O2 Content 33, VBG Base Excess 6 H 12/09/19 08:01: VBG pH 7.39, VBG pO2 38, VBG HCO3 31 H, VBG O2 Sat (Calc) 71 H, VBG O2 Content 33, VBG Base Excess 7 H Rhythm: Sinus rhythm; PVCs Cardiac Cath: CONCLUSIONS Right heart pressures - mildly elevated The patient has pulmonary hypertension which is mild. Intracardiac shunting: None Normal Left Ventricular End Diastolic Pressure Segmented LV systolic dysfunction- Moderate - Severe LVEF: by LV gram 30 % [place] Multivessel CAD Mitral Valve Insufficiency Moderately - Severe RECOMMENDATIONS Risk factor modification Medical therapy Surgery consult for coronary revascularization Surgery consult for valvular disease CORONARY ANGIOGRAPHY DOMINANCE: Right Dominant LEFT HEART ASSESSMENT Left Ventricular Ejection Fraction: by LV Gram 30 % Anterior Hypokinesis. Inferior Basal Akinesis. Inferior Mid Hypokinesis - Severe. Apical Hypokinesis Normal Left Ventricular End Diastolic Pressure LVEDP: 11 mmHg RIGHT HEART ASSESSMENT Thermal CO: 4.77 Thermal CI: 2.41 Talia CO: 10.35 Talia CI: 5.23 PW: 18/18 15 PA: 39/17 24 RV: 37/0 9 RA: 8/7 5 PVR: 151 SVR: 1241 Right Heart pressures - elevated Pulmonary Hypertension Mild Intracardiac shunting: None LEFT MAIN: Moderate calcification, eccentric: 25 % Stenosis LEFT ANTERIOR DESCENDING ARTERY: Mild luminal irregularities PROX LAD: Moderate calcification DIAGONAL 1: Proximal - 50 - 75 % Stenosis (small caliber vessel) CIRCUMFLEX ARTERY: PROX CIRC: 75 % Stenosis RAMUS: proximal: 75 % Stenosis RIGHT CORONARY ARTERY: PROX RCA: Mild calcification, 50 % Stenosis MID RCA: Mild calcification, eccentric: hazy: 85 % Stenosis DISTAL RCA: Mild luminal irregularities VALVE FINDINGS: Mitral Valve Insufficiency - Grade 3 AORTIC ROOT: Angiographically normal Medical Necessity - Tobacco Use Smoking Status: Former smoker Assessment/Plan 1. Non-ST segment elevation TX The patient presents with findings compatible with a non-ST segment elevation TX. This may have been a type II supply demand mismatch event brought on by her progressive shortness of breath/dyspnea and hypoxemia. At the moment she is being followed with cardiac enzymes and telemetry monitoring and ECG. She had a transthoracic echocardiogram performed. The results are as previously noted. She has now undergone further evaluation with diagnostic cardiac catheterization. The report is as noted. She will need to continue risk factor modification medical therapy. She is going to be considered for referral to a tertiary care center for CT consultation for consideration for coronary revascularization therapy as well as mitral valve repair/replacement. 2. CHF: Acute: Unspecified At the present time the patient does have findings compatible with acute CHF. It appears this is systolic mediated based upon findings of her noninvasive and invasive studies. She does need to continue medical therapy. This will include medications such as her diuretics and other medications as deemed appropriate. Her echocardiogram and cardiac catheterization reports are noted. 3. Cardiac dysrhythmia She had a recent Holter monitor demonstrating both atrial and ventricular dysrhythmias. It is unclear whether this is related to her underlying pulmonary disease including obstructive sleep apnea versus related to underlying previously undiagnosed cardiovascular disease. At the moment she will continue to be monitored. Her rhythm can be addressed as needed. The moment this does include medical management as best as possible. 4. Mitral valve disorder She does have the appearance of underlying significant MR based on both her echocardiogram and her cardiac catheterization. This point in time she will continue medical management. She was asked to consider being transferred to a tertiary care center for a CT consultation for not only coronary revascularization therapy but mitral valve repair/replacement. 5. Hyperlipidemia She will continue lipid-lowering therapy. 6. Hypertension She states her blood pressure elevations have been recent. She will need medical therapy and attempt to bring her blood pressure under better control. 7. COPD She is reported as having severe COPD. Her chest x-ray does not suggest findings compatible with underlying chronic pulmonary disease. She has been followed by pulmonology. Their input may be required during her hospitalization to assist in her evaluation and care. 8. Obstructive sleep apnea She will continue evaluation care per her primary care physician and pulmonology. Comment: The patient's case has been discussed with the patient and her daughter. This note was generated using a voice recognition system and there may be incorrect words, spelling or punctuation that were not noted when reviewing the office note prior to saving.
--- NOTE | 2019-12-09 08:55 | CASEMGMT ---
According to the [facility] website, the following are in-network tertiary facilities: [facility], [facility], and . Leida BARNETT CM
[2019-12-09] MEDS: 0.9% Normal Saline 1,000 ML 50 ML IV (09:12)
[2019-12-09] MEDS: Acetaminophen 325 MG Tablet 650 MG PO (09:49)
--- NOTE | 2019-12-09 12:29 | DCINST_ITS ---
- Discharge Diagnoses Current Active Problems: Current Active and Chronic Problems (Last Updated 12/07/19 @ 09:[address] Saad Singh MD) Cardiac dysrhythmia (Acute) HTN (hypertension) (Chronic) HLD (hyperlipidemia) (Chronic) Non-ST elevation myocardial infarction (NSTEMI) (Acute) CHF (congestive heart failure) (Acute) You will use the following diet at home:: Cardiac Your food should be the consistency of: Regular Your liquids should be the consistency of: Regular/Thin Discharge Activity: - - bed rest for now Allergies/Adverse Reactions: Allergies No Known Allergies Allergy (Unverified 11/21/19 14:10) Medications to take at Discharge Montelukast Sodium 10 mg PO DAILY 12/07/19 Acetaminophen [Tylenol Tablet] 650 mg PO Q6H PRN PRN tablet 12/09/19 Albuterol Aerosols [Ventolin Aerosols] 2.5 mg INHALATION Q4H PRN PRN vial.neb. 12/09/19 Aspirin E.C. [Ecotrin] 81 mg PO DAILY@0800 tablet 12/09/19 Atorvastatin Calcium [Lipitor] 80 mg PO QHS tablet 12/09/19 Carvedilol [Coreg (Beta Nerissa)] 6.25 mg PO BID tablet 12/09/19 Furosemide 40 mg PO BID #60 12/09/19 Ipratropium/Albuterol Sulfate [Duoneb] 3 ml INHALATION Q6H.RT ampul.neb 12/09/19 Lisinopril [Zestril] 5 mg PO BID tablet 12/09/19 Menthol [Bengay Vanishing Scent] 1 applic TOPICAL TID PRN PRN tube 12/09/19 Ondansetron [Zofran] 4 mg IV Q8H PRN PRN vial 12/09/19 Senna/Docusate Sodium [Senokot-S] 2 tablet PO BID PRN PRN tablet 12/09/19 Zolpidem Tartrate [Ambien] 5 mg PO QHS PRN PRN tablet 12/09/19 Primary Care Physician: Rina Valle NP-C [Primary Care Provider] - Test Results: Test results from this visit will be discussed in further detail at your follow- up appointment, if applicable.
--- NOTE | 2019-12-09 12:33 | PCM.DC.SUM ---
Discharge Date and Diagnosis - Problem List Patient Problems: Active and Suspected Problems (Last Updated 12/07/19 @ 09:[address] Saad Singh MD) Cardiac dysrhythmia (Acute) Non-ST elevation myocardial infarction (NSTEMI) (Acute) CHF (congestive heart failure) (Acute) Date of Admission: 12/07/19 Date of Discharge: 12/09/19 - Primary Discharge Diagnosis Acute Problems: Active Problems (Last Updated 12/07/19 @ 09:[address] Saad Singh MD) Cardiac dysrhythmia (Acute) Non-ST elevation myocardial infarction (NSTEMI) (Acute) CHF (congestive heart failure) (Acute) - Secondary Discharge Diagnosis Chronic Problems: Chronic Problems (Last Updated 12/07/19 @ 09:[address] Saad Singh MD) HTN (hypertension) (Chronic) HLD (hyperlipidemia) (Chronic) Stage 3 severe COPD by GOLD classification (Chronic) Chronic hypoxemic respiratory failure (Chronic) Nicotine dependence, cigarettes, in remission (Chronic) Hospital Course and Treatment Imaging Results: 12/09/19 08:36 Abdomen Limited [US] Routine Cardiac Cath ndications: Suspected CAD, Valvular Disease, LV Dysfunction Heart Failure: NYHA Class: 3, Newly Diagnosed: Yes, Heart Failure Type: Systolic Stress/Imaging Stress/Image Study Performed: No Angina Classification Anginal Classification w/in 2 Weeks: Anginal Equivalent Dyspnea CAD Presentations: Non-STEMI. CONCLUSIONS Right heart pressures - mildly elevated The patient has pulmonary hypertension which is mild. Intracardiac shunting: None Normal Left Ventricular End Diastolic Pressure Segmented LV systolic dysfunction- Moderate - Severe LVEF: by LV gram 30 % [place] Multivessel CAD Mitral Valve Insufficiency Moderately - Severe RECOMMENDATIONS Risk factor modification Medical therapy Surgery consult for coronary revascularization Surgery consult for valvular disease DESCRIPTION OF PROCEDURE The patient arrived to the procedure lab. The risks and benefits of the procedure as well as a full description of our services here and current unavailability of surgical backup were fully explained to the patient and/or their significant other prior to the catheterization. The Timeout was completed, verifying the correct patient and procedure. The patient's procedural site was prepped and draped in the usual fashion. Local anesthetic was given subcutaneously to right groin region with Lidocaine 2%. Using a modified Seldinger technique, arterial access was obtained via the right femoral artery, a 4Fr sheath was inserted Venous access was obtained via the right femoral vein, a 7Fr sheath was inserted. Thermal dilution cardiac outputs were then recorded. O2 saturations were then obtained. The Thermal dilution catheter was then removed. Left Ventriculography was performed in LION projection using a 4 Fr. Pigtail catheter. LV to AO pullback pressures were then recorded. Left Coronary Artery selective angiography was performed in multiple views using a 4 Fr. JL5 catheter. Right Coronary Artery selective angiography was then performed in multiple views using a 4 Fr. 3DRC catheter.The arterial sheath was pulled and manual compression applied until hemostasis is achieved.. The venous sheath was then pulled and manual compression applied until hemostasis achieved CORONARY ANGIOGRAPHY DOMINANCE: Right Dominant LEFT HEART ASSESSMENT Left Ventricular Ejection Fraction: by LV Gram 30 % Anterior Hypokinesis. Inferior Basal Akinesis. Inferior Mid Hypokinesis - Severe. Apical Hypokinesis Normal Left Ventricular End Diastolic Pressure LVEDP: 11 mmHg RIGHT HEART ASSESSMENT Thermal CO: 4.77 Thermal CI: 2.41 Talia CO: 10.35 Talia CI: 5.23 PW: 15 PA: 39 24 RV: 37/0 9 RA: 12/05 5 PVR: 151 SVR: 1241 Right Heart pressures - elevated Pulmonary Hypertension Mild Intracardiac shunting: None LEFT MAIN: Moderate calcification, eccentric: 25 % Stenosis LEFT ANTERIOR DESCENDING ARTERY: Mild luminal irregularities PROX LAD: Moderate calcification DIAGONAL 1: Proximal - 50 - 75 % Stenosis (small caliber vessel) CIRCUMFLEX ARTERY: PROX CIRC: 75 % Stenosis RAMUS: proximal: 75 % Stenosis RIGHT CORONARY ARTERY: PROX RCA: Mild calcification, 50 % Stenosis MID RCA: Mild calcification, eccentric: hazy: 85 % Stenosis DISTAL RCA: Mild luminal irregularities VALVE FINDINGS: Mitral Valve Insufficiency - Grade 3 AORTIC ROOT: Angiographically normal COMPLICATIONS No Complications PROCEDURE MEDICATIONS Versed 1 mg IV Oxygen: 4 L/min via nasal cannula SUMMARY OF HEMODYNAMIC DATA Time AIR REST ECG 07:25:21 RA 8 (5) SV 07:42:51 RV 37/0, 9 07:43:06 PW (15) PV 07:43:34 PA 39/17 (24) PA 07:43:51 LV 122/0, 14 07:52:39 PW / (18) 07:52:39 LV 137/0, 11 07:52:54 PW 45/35 (26) 07:52:54 LV 125/0, 12 07:54:01 PW 19/20 (16) 07:54:01 PA 43/17 (27) 07:54:22 AO 94/65 (79) SA 07:56:27 PA 51/20 (33) 08:03:33 RV 49/7, 11 08:03:46 RA 11/9 (8) 08:04:01 Type SV CO (l/m) CI (l/m/ HR Time AIR REST Thermal 70.10 4.77 2.41 68 07:25:21 Talia 152.20 10.35 5.23 68 07:25:21 Label % O2 Pres/Loc Time AIR REST AO 96 PV 08:05:16 SVC 67 08:05:29 IVC 79 SV 08:05:38 PA 71 PA 08:05:45 Signed By Loi Jenkins MD On 12/09/2019 08:51:40 Loi Jenkins MD Cardiology Operations: None Procedures: Cardiac catheterization Summary of Care Provided: The patient is a 74 year old F who presented to the ED on 12/07/2019 2/2 SOB. Her sx started the night prior to admission at around 11 pm and she has SOB at rest and her SOB was aggrivated by minimal activity and not relieved with rest. She was requiring FiO2 of 5 L in the ED. She had PND and was not able to sleep 2/2 SOB. She had no sx that were suggestive of infection and she uses O2 of 4 L at baseline for COPD. She had a PSG recently but results are still pending. She had a BNP of 1179 and a troponin of 1.5 and then trending down to 1.040 on last assessment. Her CXR on admission showed pulmonary vascular congestion. She was given IV heparin bolus and started on a ggt, given a plavix load and 1 dose of IV lasix on 12/06. She improved clinically with diuresis and has been weaned to 4 L n/c. A cardiac catheterization was done on the am of 12/08 and revealed mildly elevated R heart pressures, mild PAH, EF 30% with severe MV insufficiency and diffuse multivessel CAD. Dr. Jenkins is recommending transfer to tertiary center and the family has chosen [facility]. Dr. Jenkins has talked to Dr. Yadav ([facility]) and he has accepted the transfer. Arrangements are being arranged. Patient Problems: Active and Suspected Problems (Last Updated 12/07/19 @ 09:[address] Saad Singh MD) Cardiac dysrhythmia (Acute) Non-ST elevation myocardial infarction (NSTEMI) (Acute) CHF (congestive heart failure) (Acute) Subjective: Pt states that her breathing is much better since admission. She has chosen to go to [facility] and is awaiting arrangements to be made. Daughter is at the bedside. - Physical Exam Vitals/I&O's: Vital Signs Temp Pulse Resp BP Pulse Ox 97.4 F L 58 L 16 115/51 L 98 12/09/19 10:42 12/09/19 11:45 12/09/19 11:45 12/09/19 11:45 12/09/19 11:45 Oxygen Flow Rate (L/min) 4 Oxygen Delivery Method Nasal Cannula Weight: 91 kg Body Mass Index (BMI) 33.7 Intake and Output for Last 24 Hours 12/07/19 12/08/19 12/09/19 23:59 23:59 23:59 Intake Total 662.38 / 662.38 1000.25 / 1000.25 195.17 / 195.17 Output Total 1200 / 1200 1300 / 1300 450 / 450 Balance -537.62 / -537.62 -299.75 / -299.75 -254.83 / -254.83 General: Alert, Oriented x3, Cooperative, No apparent distress, Well developed, Well nourished HEENT: Atraumatic, PERRLA, EOMI, Normocephalic, EAC Clear Oral: Moist Mucosa, No Gingival or Mucosal Lesions/ Ulcerations Neck: Supple, No JVD, Negative Carotid Bruits, No Nodes, No Nuchal Rigidity, Trachea Midline, Thyroid Normal Size and Texture Lungs: Clear to auscultation, No rhonchi, No wheeze, Diminished - diffusely, Rales - few at bases Cardiovascular: Regular rate, Regular Rhythm, Normal S1, Normal S2, No Ectopic Activity, Murmur - 3-4/6 SM, No Gallop Abdomen: Bowel Sounds Present, Soft, Non Tender, Non-Distended, No Hepato-splenomegaly, Obese, No hernias noted Extremities: No clubbing, No cyanosis, No edema, Capillary Refill Less than 3 Seconds, Peripheral Pulses Normal Skin: No rashes, No breakdown, - - R groin bandaged Musculoskeletal: No Tenderness to Palpation of Joints or Extremities, No Muscle Wasting, Arthritic Changes Lymphatic: No Cervical, Supraclavicular, or Inguinal Adenopathy Neurological: Cranial nerves II-XII grossly intact, Neuro grossly intact, Muscle tone normal, Coordination normal Psych/Mental Status: Normal Affect, Appropriate, Alert and oriented to time, place, person, mood and affect Laboratory Results 12/08/19 18:41: APTT 62.1 H 12/09/19 00:45: APTT 68.5 H 12/09/19 05:46: Sodium 137, Potassium 3.5, Chloride 99, Carbon Dioxide 30.0, Anion Gap 8, BUN 41 H, Creatinine 1.89 H, Estim Creat Clear Calc 23.14, Est GFR (MDRD) Af Amer 33 L, Est GFR (MDRD) Non-Af 28 L, BUN/Creatinine Ratio 21.7 H, Glucose 103, Calcium 9.5 12/09/19 07:42: Specimen Type ART, pH 7.42, Bicarbonate Actual 31.2 H, Total CO2 33, Base Excess 7 H, O2 Saturation 96, ABG pCO2 48.5 H, ABG pO2 84 12/09/19 07:49: Specimen Type PAUL, VBG pH 7.38, VBG pO2 45 H, VBG HCO3 30 H, VBG O2 Sat (Calc) 79 H, VBG O2 Content 32, VBG Base Excess 5 H, POC Mix VBG pCO2 Pt Tmp 51.0 12/09/19 07:54: Specimen Type PAUL, VBG pH 7.36, VBG pO2 37, VBG HCO3 31 H, VBG O2 Sat (Calc) 67, VBG O2 Content 33, VBG Base Excess 6 H, POC Mix VBG pCO2 Pt Tmp 55.8 H 12/09/19 08:01: Specimen Type PAUL, VBG pH 7.39, VBG pO2 38, VBG HCO3 31 H, VBG O2 Sat (Calc) 71 H, VBG O2 Content 33, VBG Base Excess 7 H, POC Mix VBG pCO2 Pt Tmp 52.0 H Current Medications Acetaminophen (Tylenol) 650 mg PO Q6H PRN PRN PRN Reason: Pain Score 1-10/Temp > 100.7 F Last Admin: 12/09/19 09:49 Dose: 650 mg Documented by: Albuterol Sulfate (Ventolin Aerosols) 2.5 mg INHALATION Q4H PRN PRN PRN Reason: Shortness of breath, wheezing Albuterol/Ipratropium (Duoneb) 3 ml INHALATION Q6H.RT [facility] Last Admin: 12/09/19 06:50 Dose: 3 ml Documented by: Aspirin (Ecotrin) 81 mg PO DAILY@0800 [facility] Last Admin: 12/09/19 05:59 Dose: 81 mg Documented by: Atorvastatin Calcium (Lipitor) 40 mg PO QHS [facility] Last Admin: 12/08/19 21:11 Dose: 40 mg Documented by: Carvedilol (Coreg) 6.25 mg PO BID [facility] Last Admin: 12/09/19 05:59 Dose: 6.25 mg Documented by: Furosemide (Lasix) 20 mg IV BID@1000,1800 [facility] Last Admin: 12/08/19 17:50 Dose: 20 mg Documented by: Heparin Sodium (Beef Lung) (Heparin 500 Unit/5 Ml (100/Ml)) 500 unit IV UD PRN PRN Reason: HEPARIN FLUSH Heparin Sodium/Sodium Chloride () 25,000 unit in 250 mls @ 14 mls/hr IV .[id number] [facility]; Protocol Last Titration: 12/09/19 02:00 Dose: 0 units/hr, 0 mls/hr Documented by: Sodium Chloride () 1,000 mls @ 15 mls/hr IV .Q48H [facility] Last Infusion: 12/09/19 09:52 Dose: 0 mls/hr Documented by: Sodium Chloride () 1,000 mls @ 50 mls/hr IV .Q20H [facility] Stop: 12/09/19 12:34 Last Admin: 12/09/19 09:12 Dose: 50 mls/hr Documented by: Labetalol HCl (Trandate) 5 mg IV X1 PRN PRN Reason: SBP > 160 prior to sheath pull Stop: 12/11/19 08:32 Lisinopril (Zestril) 5 mg PO BID [facility] Last Admin: 12/09/19 05:59 Dose: 5 mg Documented by: Menthol (Bengay Vanishing Scent) 1 applic TOPICAL TID PRN PRN PRN Reason: LEG CRAMPS Last Admin: 12/08/19 04:31 Dose: 1 applic Documented by: Montelukast Sodium (Singulair) 10 mg PO DAILY [facility] Last Admin: 12/08/19 08:53 Dose: 10 mg Documented by: Ondansetron HCl (Zofran) 4 mg IV Q8H PRN PRN PRN Reason: NAUSEA/VOMITING Senna/Docusate Sodium (Senokot-S, Sera-Colace) 2 tablet PO BID PRN PRN PRN Reason: Constipation Sodium Chloride () 10 - 40 ml IV UD PRN PRN Reason: SALINE FLUSH Last Admin: 12/08/19 17:50 Dose: 10 ml Documented by: Zolpidem Tartrate (Ambien (Generic)) 5 mg PO QHS PRN PRN PRN Reason: INSOMNIA Discharge Activity: - - bed rest for now Home Medications: Medications to take at Discharge Montelukast Sodium 10 mg PO DAILY 12/07/19 Acetaminophen [Tylenol Tablet] 650 mg PO Q6H PRN PRN tablet 12/09/19 Albuterol Aerosols [Ventolin Aerosols] 2.5 mg INHALATION Q4H PRN PRN vial.neb. 12/09/19 Aspirin E.C. [Ecotrin] 81 mg PO DAILY@0800 tablet 12/09/19 Atorvastatin Calcium [Lipitor] 80 mg PO QHS tablet 12/09/19 Carvedilol [Coreg (Beta Nerissa)] 6.25 mg PO BID tablet 12/09/19 Furosemide 40 mg PO BID #60 12/09/19 Ipratropium/Albuterol Sulfate [Duoneb] 3 ml INHALATION Q6H.RT ampul.neb 12/09/19 Lisinopril [Zestril] 5 mg PO BID tablet 12/09/19 Menthol [Bengay Vanishing Scent] 1 applic TOPICAL TID PRN PRN tube 12/09/19 Ondansetron [Zofran] 4 mg IV Q8H PRN PRN vial 12/09/19 Senna/Docusate Sodium [Senokot-S] 2 tablet PO BID PRN PRN tablet 12/09/19 Zolpidem Tartrate [Ambien] 5 mg PO QHS PRN PRN tablet 12/09/19 Primary Care Physician: Rina Valle NP-C [Primary Care Provider] - Medical Necessity - Tobacco Use Smoking Status: Former smoker Meaningful Use Info Meaningful Use Diagnoses (Choose all that apply): AMI - AMI/Post PCI/Angioplasty Aspirin given w/in 24hrs of arrival?: Yes ASA at discharge?: Yes Antiplatelet Therapy at Discharge:: No Reason Antiplatelet Therapy not ordered:: needs CABG/MVR Statins at discharge?: Yes Sebas/ARB at discharge?: Yes Beta Nerissa at discharge?: Yes Done w/ Acute NH measure.: Yes Documented LVEF (%): 30 Inpatient E&M: 67211 Disch Hosp
[2019-12-09] MEDS: Montelukast 10 MG Tablet PO (13:51)
== END 2019-12-09 16:31 | disposition short-term general hospital (02) | DRG 280 ==
LOC: ED 06:33 → PCU 07:36
PROVIDERS: Admitting Provider Hospitalist; Emergency Provider Emergency Medicine; PCP Nurse Practitioner; Visit Provider Internal Medicine
DX: I21.4 Non-ST elevation (NSTEMI) myocardial infarction (principal); I50.21 Acute systolic (congestive) heart failure; J96.11 Chronic respiratory failure with hypoxia; J44.1 Chronic obstructive pulmonary disease with (acute) exacerbation; N17.9 Acute kidney failure, unspecified; I11.0 Hypertensive heart disease with heart failure; I25.10 Atherosclerotic heart disease of native coronary artery without angina pectoris; I27.20 Pulmonary hypertension, unspecified; I34.0 Nonrheumatic mitral (valve) insufficiency; E78.5 Hyperlipidemia, unspecified; G47.33 Obstructive sleep apnea (adult) (pediatric); Z79.51 Long term (current) use of inhaled steroids; Z79.82 Long term (current) use of aspirin; Z99.81 Dependence on supplemental oxygen; Z79.899 Other long term (current) drug therapy; Z87.891 Personal history of nicotine dependence
CPT/HCPCS: 36415; 71046; 80048; 80061; 80076; 82803; 83880; 84443; 84484; 85025; 85610; 85730; 87635; 93005; 93306; 93460; 94640; 94799; 97116; 97163; 97166; 99152; 99153; 99251; 99285; J7030; Q9967; A4216; C1751; C1769; C1894; G0463; J1940; U0003

== ENCOUNTER → 2020-01-15 12:04 | Outpatient (CLI) | payer MEDICARE, SELFPAY ==
[2020-01-15 08:52] VITALS: BMI 33.3
[2020-01-15 16:33] LABS: Anion Gap 4 (5-15); BUN 29 mg/dL (7-18); BUN/Creat Ratio 24.8 RATIO (10-20); Calcium,Total 9.8 mg/dL (8.5-10.1); Chloride 106 mmol/L (98-107); Creatinine, Serum 1.17 mg/dL (0.55-1.02); EST Glomerular Filtration Rate 48 mL/min (>60); Est Glom Filt Rate - Afr Amer 58 mL/min (>60); Glucose 82 mg/dL (74-106); Potassium 4.4 mmol/L (3.5-5.1); Sodium Level 138 mmol/L (136-145)
== END ==
PROVIDERS: PCP Nurse Practitioner
DX: I25.5 Ischemic cardiomyopathy (principal)
CPT/HCPCS: 36415; 80048

== ENCOUNTER 2020-07-02 09:58 | Outpatient (RCR) | payer MEDICARE, SELFPAY ==
[2020-01-15 08:52] VITALS: BMI 33.3
[2020-07-02] MEDS: COVID-19 VACC, MRNA(PFIZER)/PF 30 MCG/0.3 ML SYRINGE IM (11:44)
[2020-07-23] MEDS: COVID-19 VACC, MRNA(PFIZER)/PF 30 MCG/0.3 ML SYRINGE IM (11:37)
== END 2020-07-02 23:59 ==
LOC: IMMUN 09:58
PROVIDERS: PCP Nurse Practitioner; Visit Provider Family Medicine
DX: Z23 Encounter for immunization (principal)
CPT/HCPCS: 0001A; 0002A

== ENCOUNTER → 2020-10-05 12:42 | Outpatient (CLI) | payer MEDICARE, SELFPAY ==
[2020-09-22 07:37] VITALS: BMI 36.1
--- NOTE | 2020-10-05 12:46 | CT_ITS ---
STUDY: LOW DOSE CT LUNG CANCER SCREENING REASON FOR EXAM: Female, 75 years old. Smoking and amp;gt; 40 pack years, quit 8 years ago RADIATION DOSAGE (If Supplied By Facility): CTDIvol = ( 3.18 ) mGy, DLP = ( 100.06 ) mGycm TECHNIQUE: No contrast was administered. Low dose technique was utilized (average mAS-38 and kVp 120). 1.25 mm axial source images with a slice interval of 1.25-mm were reconstructed in lung windows. 2.5 mm axial source images with a slice interval of 2.5-mm were reconstructed in lung windows. 5.0 mm axial source images with a slice interval of 5.0-mm were reconstructed in soft tissue windows. Nodule measured using lung windows on PACS and/or independent workstation with automated measurement of minimum and maximum diameter. Nodule measurement reported as average diameter rounded to the nearest whole number. Growth is defined as an increase ins size of greater than 1.5 mm. COMPARISON: Comparison is made with prior study dated 07/04/2019. NODULES: No suspicious nodule is seen. Minimal linear scarring at the lung bases. Emphysema: Diffuse emphysematous changes more prominent in the upper lobes. Endobronchial lesion: None Aorta: Atherosclerotic plaque formation of the aortic arch and descending thoracic aorta. Coronary arteries: Coronary artery calcification. Heart: A left-sided dual-chamber pacemaker is seen. Pulmonary artery: Unremarkable Mediastinal nodes: Small benign-appearing mediastinal lymph nodes. Other chest and abdominal findings: Degenerative changes of the thoracic vertebrae. CT/Low Dose CT Lung Screening IMPRESSION: Lung-RADS category 2 - Continue annual screening with LDCT in 12 months. IMPORTANT NOTES FOR USE: ACR Lung-RADS Version 1.1 Assessment Categories Release Date: 2018 Category: Coded 0-4 bases on nodule(s) with highest degree of suspicion. Negative screen is defined as categories 1 and 2; a positive screen is defined as categories 3 and 4. Category 3 and 4A nodules that are unchanged on interval CT should be coded as category 2, and individuals returned to screening in 12 months. Category 4X: Category 3 or 4 nodules with additional imaging findings that increase the suspicion of lung cancer, such as spiculation, GGN that doubles in size in 1 year, enlarged lymph notes, etc. Category Modifiers: S (significant finding unrelated to lung cancer) Electronically Signed: Benny Mendieta MD at 14:32 EDT , Service support ,
== END ==
PROVIDERS: PCP Nurse Practitioner; Referring Provider Nurse Practitioner Acute Care; Visit Provider Nurse Practitioner Acute Care
DX: F17.210 Nicotine dependence, cigarettes, uncomplicated (principal)
CPT/HCPCS: 71271

== ENCOUNTER → 2020-11-12 12:36 | Outpatient (CLI) | payer MEDICARE, SELFPAY ==
[2020-09-22 07:37] VITALS: BMI 36.1
--- NOTE | 2020-11-12 12:38 | US_ITS ---
INDICATION: DECREASED GFR EXAMINATION: US Kidney(s) complete (eg, kidneys and bladder) TECHNIQUE: Alvarenga scale and color doppler images were obtained of the kidneys. COMPARISON: None. FINDINGS: RIGHT KIDNEY: Normal location of the right kidney, which is moderately atrophic in size. The right kidney measures 7.6 cm. There is diffuse thinning of the renal cortex. The renal cortex measures 0.8 cm. There is a 1.2 cm well-circumscribed anechoic cyst in the upper pole. There is a 5 mm shadowing calcification within the lower pole. There are no right renal calculi. There is no right hydronephrosis. LEFT KIDNEY: Normal location of the left kidney, which is normal in size. The left kidney measures 9.3 cm. There is a normal cortex of the left kidney. The renal cortex measures 1.2 cm. There is no left renal mass or cyst. There are no left renal calculi. There is no left hydronephrosis. URINARY BLADDER: No acute abnormality. US/Kidney and Bladder IMPRESSION: Atrophic right kidney with a 5 mm non-obstructing stone in the inferior pole. Normal appearing left kidney. No hydronephrosis. Electronically Signed: Chano Garcia MD at 17:18 EDT Tel , Service support ,
== END ==
PROVIDERS: PCP Nurse Practitioner; Referring Provider Nurse Practitioner; Visit Provider Nurse Practitioner
DX: R94.4 Abnormal results of kidney function studies (principal)
CPT/HCPCS: 76770

== ENCOUNTER → 2020-12-16 13:08 | Outpatient (CLI) | payer MEDICARE, SELFPAY ==
[2020-11-25 07:55] VITALS: BMI 36.3
--- NOTE | 2020-12-16 13:10 | BI_ITS ---
MAMMOGRAPHY - BILATERAL SCREENING REASON FOR EXAM: Female, 75 years old. Routine annual screening examination. PERTINENT HISTORY: Non-contributory. TECHNIQUE: Digital bilateral breast andrey (3D mammographic acquisition) in the CC and MLO projections. 2-D mediolateral oblique (MLO) and craniocaudad (CC) views of both breasts were obtained. CAD: Full Field Digital Mammography with Computer Added Detection was performed. COMPARISON: Comparison is made with prior study dated 11/14/2019 and 06/05/2017. FINDINGS: Breast Composition: There are scattered areas of fibroglandular density. There are no dominant masses or suspicious calcifications. Stable benign-appearing bilateral axillary lymph node. No other significant abnormalities are identified. There has been no significant change since the prior study. BI/SCRN MAMM (CAD)W/ANDREY BILAT IMPRESSION: Stable bilateral screening mammogram. Yearly follow-up mammogram recommended. (A) ASSESSMENT CATEGORY: BIRADS Category 2: Benign. A letter regarding these results will be sent to the patient by the facility within 30 days. Approximately 10% of breast cancers are not detected by mammography. A normal mammogram should not delay biopsy of a clinically suspicious abnormality. [id number] Electronically Signed: Benny Mendieta MD at 14:07 EDT , Service support ,
== END ==
PROVIDERS: PCP Nurse Practitioner; Referring Provider Nurse Practitioner; Visit Provider Nurse Practitioner
DX: Z12.31 Encounter for screening mammogram for malignant neoplasm of breast (principal)
CPT/HCPCS: 77063; 77067

== ENCOUNTER → 2020-12-21 12:13 | Outpatient (CLI) | payer MEDICARE, SELFPAY ==
[2020-11-25 07:55] VITALS: BMI 36.3
[2020-12-21 12:48] VITALS: PULSE 61; PULSE 65; PULSE 75; PULSE 77; PULSE 79; PULSE 80; PULSE 81; O2SAT 86; O2SAT 90; O2SAT 92; O2SAT 95; O2SAT 96; O2SAT 97
--- NOTE | 2020-12-21 12:51 | CPS ---
Patient stated she wears 5 lpm O2 at home PRN. She did not come in with oxygen on and did not bring hers with her. SpO2 90-92% at rest Room Air. Started walk on room air, by the 2nd minute SpO2 86%, placed patient on our continuous flow tank at 3 lpm, SpO2 recovered to 95%. Patient was able to walk the remainder of the time on 3 lpm. Patient took one break due to hip pain.
--- NOTE | 2020-12-22 11:43 | PCM.PSN.6M ---
PSN 6 Minute Walk Test 6 Minute Walk Test 6 Minute Walk Test: 6 Minute Walk Test PSN:6-Minute Walk Test Start: 12/21/20 12:47 Freq: Status: Active Protocol: [id number] Document 12/21/20 12:48 [email or web address] (Rec: 12/21/20 12:53 GEN [id number]) 6 Minute Walk Test Date Performed 12/21/20 Time Performed 12:30 Height 5 ft 3 in Weight: 90.718 kg Weight in Pounds 200.[address]: Alessandro Zepeda Assistive device used: Cane Pre-test Oxygen Delivery Method Room Air Pulse Ox (%) 90 Pulse Rate (60-100 beats/min) 61 Dyspnea Myrtle Scale (0-10) 0 Exertion Myrtle Scale (6-20) 6 1st minute Oxygen Delivery Method Room Air Pulse Ox (%) 92 Pulse Rate (60-100 beats/min) 80 2nd minute Oxygen Delivery Method Room Air Pulse Ox (%) 86 Pulse Rate (60-100 beats/min) 81 3rd minute Oxygen Flow Rate (L/min) (L/min) 3 Oxygen Delivery Method Nasal Cannula Pulse Ox (%) 97 Pulse Rate (60-100 beats/min) 75 4th minute Oxygen Flow Rate (L/min) (L/min) 3 Oxygen Delivery Method Nasal Cannula Pulse Ox (%) 96 Pulse Rate (60-100 beats/min) 79 5th minute Oxygen Flow Rate (L/min) (L/min) 3 Oxygen Delivery Method Nasal Cannula Pulse Ox (%) 95 Pulse Rate (60-100 beats/min) 77 Number of Rests Taken 1 6th minute Oxygen Flow Rate (L/min) (L/min) 3 Oxygen Delivery Method Nasal Cannula Pulse Ox (%) 96 Pulse Rate (60-100 beats/min) 77 Dyspnea Myrtle Scale (0-10) 3 Exertion Myrtle Scale (6-20) 13 Post-test Oxygen Flow Rate (L/min) (L/min) 3 Oxygen Delivery Method Nasal Cannula Pulse Ox (%) 97 Pulse Rate (60-100 beats/min) 65 Full Laps Walked 11 Partial Lap, Number of Tiles Walked 22 Total Distance Walked (ft) 671 12/21/20 12:51 Cardiopulmonary Services by Noelle Caicedo Patient stated she wears 5 lpm O2 at home PRN. She did not come in with oxygen on and did not bring hers with her. SpO2 90-92% at rest Room Air. Started walk on room air, by the 2nd minute SpO2 86%, placed patient on our continuous flow tank at 3 lpm, SpO2 recovered to 95%. Patient was able to walk the remainder of the time on 3 lpm. Patient took one break due to hip pain. Initialized on 12/21/20 12:51 - END OF NOTE Interpretation Interpretation: The patient ambulated 671 feet over the course of 6 minutes beginning on room air with the use of a cane. Pretesting oxygen saturation was noted to be 90% on room air. With ambulation, the nyla oxygen saturation was 86%. 3 L/min of supplemental oxygen was applied and the patient was able to complete the remainder of the test while maintaining appropriate oxygen saturations. Recommendations Recommendations: 3 L/min of supplemental oxygen should be utilized with exertion.
== END ==
PROVIDERS: PCP Nurse Practitioner; Referring Provider Internal Medicine Critical Care Medicine; Visit Provider Internal Medicine Critical Care Medicine
DX: J96.11 Chronic respiratory failure with hypoxia (principal)
CPT/HCPCS: 94618

== ENCOUNTER → 2021-03-23 12:01 | Outpatient (CLI) | payer MEDICARE, SELFPAY ==
--- NOTE | 2021-03-23 12:06 | RAD_ITS ---
STUDY: X-RAY CHEST REASON FOR EXAM: Female, 75 years old. SOB TECHNIQUE: PA and lateral views of the chest. COMPARISON: 12/07/2019 FINDINGS: Stable appearance of a left subclavian pacemaker The lungs are clear and expanded. There is no demonstrated pleural abnormality. Normal size heart. Normal mediastinum and malik. Normal visualized pulmonary arteries. Normal visualized aortic arch and descending thoracic aorta. There are diffuse degenerative changes of the visualized thoracic spine. There is degenerative osteoarthritis of the bilateral shoulders. There is no demonstrated abnormality of the visualized soft tissue structures of the upper abdomen. RAD/Chest PA and Lateral IMPRESSION: No acute pulmonary process Electronically Signed: Dima Vergara MD at 12:54 EST , Service support ,
[2021-03-23 13:48] LABS: BNP,B-Type NATRIURETIC PEPTIDE 716.8 pg/mL (0-100)
== END ==
PROVIDERS: PCP Nurse Practitioner; Referring Provider Nurse Practitioner; Visit Provider Nurse Practitioner
DX: R06.02 Shortness of breath (principal)
CPT/HCPCS: 71046; 83880

== ENCOUNTER → 2022-03-07 | Outpatient (CLI) | payer MEDICARE, SELFPAY ==
--- NOTE | 2022-03-07 13:06 | BI_ITS ---
MAMMOGRAPHY - BILATERAL SCREENING REASON FOR EXAM: Female, 76 years old. Routine annual screening examination. PERTINENT HISTORY: Non-contributory. TECHNIQUE: Digital bilateral breast andrey (3D mammographic acquisition) in the CC and MLO projections. 2-D mediolateral oblique (MLO) and craniocaudad (CC) views of both breasts were obtained. CAD: Full Field Digital Mammography with Computer Added Detection was performed. COMPARISON: Comparison is made with prior study dated 12/16/2020 and 05/16/2019. FINDINGS: Breast Composition: There are scattered areas of fibroglandular density. There are no dominant masses or suspicious calcifications. Stable small benign-appearing bilateral axillary lymph nodes. No other significant abnormalities are identified. There has been no significant change since the prior study. BI/SCRN MAMM (CAD)W/ANDREY BILAT IMPRESSION: Stable bilateral screening mammogram. Yearly follow-up mammogram recommended. (A) ASSESSMENT CATEGORY: BIRADS Category 2: Benign. A letter regarding these results will be sent to the patient by the facility within 30 days. Approximately 10% of breast cancers are not detected by mammography. A normal mammogram should not delay biopsy of a clinically suspicious abnormality. [id number] Electronically Signed: Benny Mendieta MD at 14:01 EST ,
== END | disposition home or self-care (01) ==
LOC: OPBI 13:05
PROVIDERS: PCP Nurse Practitioner Family; Visit Provider Nurse Practitioner Family
DX: Z12.31 Encounter for screening mammogram for malignant neoplasm of breast (principal)
CPT/HCPCS: 77063; 77067

== ENCOUNTER → 2023-06-20 | Outpatient (CLI) | payer MEDICARE, SELFPAY ==
--- NOTE | 2023-06-20 13:30 | RAD_ITS ---
STUDY: X-RAY CHEST REASON FOR EXAM: Female, 77 years old. shortness of breath TECHNIQUE: Frontal and lateral views of the chest. COMPARISON: 03/23/2021. FINDINGS: The lungs are clear and expanded. Stable pleural-parenchymal scarring in the left lung base. There is no demonstrated pleural abnormality. Normal size heart. Since prior study patient has had placement of 2 mitraclips in the area of the mitral valve. Normal mediastinum and malik. Normal visualized pulmonary arteries. There is atherosclerotic calcification of the aortic arch with tortuosity. Normal visualized thoracic spine. Normal visualized ribs, clavicles, and shoulders. There is no demonstrated abnormality of the visualized soft tissue structures of the upper abdomen. RAD/Chest PA and Lateral IMPRESSION: No definite acute or significant abnormality seen. Electronically Signed: Larry Etienne MD at 22:10 EST ,
[2023-06-20 14:57] LABS: Anion Gap 5 (5-15); BUN 40 mg/dL (7-18); BUN/Creat Ratio 20.3 RATIO (10-20); Chloride 98 mmol/L (98-107); Creatinine, Serum 1.97 mg/dL (0.55-1.02); EST Glomerular Filtration Rate 26 mL/min (>60); Est Glom Filt Rate - Afr Amer 32 mL/min (>60); Glucose 111 mg/dL (74-106); Potassium 3.8 mmol/L (3.5-5.1); Sodium Level 137 mmol/L (136-145)
== END | disposition home or self-care (01) ==
PROVIDERS: PCP Nurse Practitioner Family; Referring Provider Nurse Practitioner Acute Care; Visit Provider Nurse Practitioner Acute Care
DX: R06.02 Shortness of breath (principal); I50.9 Heart failure, unspecified; I21.4 Non-ST elevation (NSTEMI) myocardial infarction
CPT/HCPCS: 36415; 71046; 80048; 83880